=== PATIENT | female | born 1945 | race African-American/Black ===

== ENCOUNTER 2018-04-11 20:34 | Emergency (ER) | payer MEDICARE ==
[2018-04-11] MEDS ORDERED: MORPHINE IV ONE (22:03)
[2018-04-11] MEDS ORDERED: ZOFRAN IV ONE (22:03)
[2018-04-11 22:41] LABS: Bilirubin,Urine NEG (Negative); Blood,Urine LG (Negative); Color,Urine Red (Yellow); Urobilinogen,Urine < 2.0 mg/dL (<2.0)
[2018-04-11 22:44] LABS: RBC,Urine > 182.0 /HPF (0.0-6.0); WBC,Urine < 1.0 /HPF (0.0-6.0)
--- NOTE | 2018-04-11 22:54 | Emergency Department Report ---
ED Abdominal Pain HPI - General Chief Complaint: Abdominal Pain Stated Complaint: N/V/VAGINAL BLEEDING Time Seen by Provider: 04/11/18 21:04 Source: EMS Mode of arrival: Ambulatory Limitations: No Limitations - History of Present Illness Initial Comments: 72-year-old female presents to ED with lower abdominal pain and hematuria. Patient has previous history of ovarian and uterine cancer, status post hysterectomy and radiation. Patient states 2-3 months ago she began experiencing abdominal pain and hematuria. She followed up with her physicians are unable to tell her the cause of her hematuria. Patient states her lower abdominal pain became worse approximately yesterday with a larger amount of blood noticed in her urine. Patient reports generalized weakness, urinary frequency, nausea and vomiting. MD Complaint: abdominal pain -: days(s) (2) Location: suprapubic Radiation: none Migration to: no migration Severity: moderate Severity scale (0 -10): 6 Quality: aching Consistency: constant Improves With: nothing Worsens With: nothing Associated Symptoms: nausea, fever, dysuria, hematuria - Related Data Home Medications Medication Instructions Recorded Confirmed Last Taken Alendronate Sodium [Fosamax] 70 mg PO 1XW 04/11/18 04/11/18 04/07/18 Cholecalciferol (Vitamin D3) 50,000 unit PO QWEEK 04/11/18 04/11/18 04/07/18 [Vitamin D3] Diclofenac [Voltcarlos Dr] 75 mg PO BID 04/11/18 04/11/18 04/11/18 08:00 Famotidine 20 mg PO BID 04/11/18 04/11/18 04/11/18 08:00 Ferrous Sulfate [Iron] 325 mg PO DAILY 04/11/18 04/11/18 04/10/18 08:00 Losartan Potassium 25 mg PO DAILY 04/11/18 04/11/18 04/10/18 Lovastatin [Altoprev] 40 mg PO HS 04/11/18 04/11/18 04/10/18 Triamterene/Hydrochlorothiazid 37.5 mg PO DAILY 04/11/18 04/11/18 04/11/18 08:00 [Triamterene-Hctz 37.5-25 mg Cp] Previous Rx's Medication Instructions Recorded Last Taken Type Ciprofloxacin HCl [Ciprofloxacin 500 mg PO BID #20 tablet 04/12/18 Unknown Rx TAB] Phenazopyridine [Pyridium] 200 mg PO TID #6 tab 04/12/18 Unknown Rx Tramadol HCl [Ultram] 50 mg PO Q6HR PRN #7 tablet 04/12/18 Unknown Rx Allergies Allergy/AdvReac Type Severity Reaction Status Date / Time No Known Allergies Allergy Unverified 04/11/18 20:58 ED Review of Systems ROS: Stated complaint: N/V/VAGINAL BLEEDING Other details as noted in HPI Comment: All other systems reviewed and negative Constitutional: weakness. denies: chills, fever Gastrointestinal: abdominal pain, nausea, vomiting Genitourinary: dysuria, frequency, hematuria ED Past Medical Hx - Past Medical History Previous Medical History?: Yes Hx Hypertension: Yes Hx of Cancer: Yes (uterine cancer in remission since 2013) Additional medical history: High cholestrol - Surgical History Additional Surgical History: Bilateral Ovaries removed - Social History Smoking Status: Never Smoker Substance Use Type: None - Medications Home Medications: Home Medications Medication Instructions Recorded Confirmed Last Taken Type Alendronate Sodium [Fosamax] 70 mg PO 1XW 04/11/18 04/11/18 04/07/18 History Cholecalciferol (Vitamin D3) 50,000 unit PO QWEEK 04/11/18 04/11/18 04/07/18 History [Vitamin D3] Diclofenac Dr [Annika Lew] 75 mg PO BID 04/11/18 04/11/18 04/11/18 08:00 History Famotidine 20 mg PO BID 04/11/18 04/11/18 04/11/18 08:00 History Ferrous Sulfate [Iron] 325 mg PO DAILY 04/11/18 04/11/18 04/10/18 08:00 History Losartan Potassium 25 mg PO DAILY 04/11/18 04/11/18 04/10/18 History Lovastatin [Altoprev] 40 mg PO HS 04/11/18 04/11/18 04/10/18 History Triamterene/Hydrochlorothiazid 37.5 mg PO DAILY 04/11/18 04/11/18 04/11/18 08: 00 History [Triamterene-Hctz 37.5-25 mg Cp] Ciprofloxacin HCl [Ciprofloxacin 500 mg PO BID #20 tablet 04/12/18 Unknown Rx TAB] Phenazopyridine [Pyridium] 200 mg PO TID #6 tab 04/12/18 Unknown Rx Tramadol HCl [Ultram] 50 mg PO Q6HR PRN #7 tablet 04/12/18 Unknown Rx ED Physical Exam - General Limitations: No Limitations General appearance: alert, in no apparent distress - Head Head exam: Present: atraumatic, normocephalic - Eye Eye exam: Present: normal appearance - ENT ENT exam: Present: mucous membranes moist - Neck Neck exam: Present: normal inspection - Respiratory Respiratory exam: Present: normal lung sounds bilaterally. Absent: respiratory distress - Cardiovascular Cardiovascular Exam: Present: regular rate, normal rhythm - GI/Abdominal GI/Abdominal exam: Present: soft, tenderness (suprapubic tenderness present) - Extremities Exam Extremities exam: Present: normal inspection - Neurological Exam Neurological exam: Present: alert, oriented X3 - Psychiatric Psychiatric exam: Present: normal affect, normal mood - Skin Skin exam: Present: warm, dry, intact, normal color ED Course Vital Signs 04/11/18 04/11/18 20:35 22:49 Temperature 97.9 F Pulse Rate 70 66 Respiratory 16 16 Rate Blood Pressure 157/70 Blood Pressure 138/55 [Left] O2 Sat by Pulse 100 Oximetry ED Medical Decision Making - Lab Data Result diagrams: 04/11/18 22:46 04/11/18 22:46 - Medical Decision Making 72-year-old female presents with worsening hematuria and suprapubic pain over the last couple days. Patient has history of ovarian and uterine cancer status post hysterectomy. Patient reports hematuria and suprapubic pain has been ongoing times approximately 3 months. Has seen her oncologist, Dr. Carson, but states unable to find reason for hematuria. States has not followed up with a urologist. Urine shows gross hematuria. UA shows large amount of RBCs and small leukocyte esterase and no nitrates. CT shows thickened bladder wall with stranding. There is some question of whether or not patient may have a entero- vesicular fistula due to the proximity of bowel to bladder on CT. However patient denies seeing any stool in her urine. Also, a urine sample at bedside appears to just be grossly bloody. Will prescribe antibiotic in case patient has a cystitis. Patient's niece is at bedside. Advised patient and niece to follow-up with oncologist and also urologist for scoping of bladder due to concern for possible malignancy. Hemoglobin normal. Vital signs normal. Will discharge at this time - Differential Diagnosis malignancy, UTI, kidney stone Critical care attestation.: If time is entered above; I have spent that time in minutes in the direct care of this critically ill patient, excluding procedure time. ED Disposition Clinical Impression: Hematuria, Abdominal pain, suprapubic Disposition: TO HOME OR SELFCARE Is pt being admited?: No Condition: Stable Instructions: Acute Hematuria (ED), Abdominal Pain (ED) Prescriptions: Ciprofloxacin HCl [Ciprofloxacin TAB] 500 mg PO BID #20 tablet Phenazopyridine [Pyridium] 200 mg PO TID #6 tab Tramadol HCl [Ultram] 50 mg PO Q6HR PRN #7 tablet PRN Reason: pain Referrals: PRIMARY CARE, [Primary Care Provider] - 3-5 Days Time of Disposition: 02:09
[2018-04-11 23:38] LABS: Basophils % (Auto) 0.4 % (0.0-1.8); Eosinophils % (Auto) 0.4 % (0.0-4.3); Hematocrit 36.6 % (30.3-42.9); Hemoglobin 12.8 gm/dl (10.1-14.3); Lymphocytes # (Auto) 1.7 K/mm3 (1.2-5.4); Lymphocytes % (Auto) 18.5 % (13.4-35.0); Mean Corpuscular HGB Conc 35 % (30-34); Mean Corpuscular Hemoglobin 30 pg (28-32); Mean Corpuscular Volume 87 fl (79-97); Monocytes # (Auto) 0.4 K/mm3 (0.0-0.8); Monocytes % (Auto) 4.9 % (0.0-7.3); Platelet Count 228 K/mm3 (140-440); Red Blood Count 4.22 M/mm3 (3.65-5.03); Red Cell Distribution Width 13.3 % (13.2-15.2)
[2018-04-11 23:49] LABS: INR 0.96 (0.87-1.13)
[2018-04-11 23:50] LABS: Partial Thromboplastin Time 31.3 Sec. (24.2-36.6)
[2018-04-12 00:15] LABS: BUN/Creatinine Ratio 17; Blood Urea Nitrogen 15 mg/dL (7-17); Calcium 9.7 mg/dL (8.4-10.2); Hemolysis Index 7
--- NOTE | 2018-04-12 01:56 | Cat Scan Report ---
FINAL REPORT EXAM: CT ABDOMEN PELVIS W CON HISTORY: abd pain, hematuria TECHNIQUE: CT evaluation performed of the abdomen and pelvis following IV and oral contrast administration. Coronal and sagittal imaging also provided for interpretation. PRIORS: None. FINDINGS: Lower thorax: The lung bases are clear. The visualized portions of the heart demonstrates coronary atherosclerotic vascular calcifications. No significant cardiac enlargement or pericardial effusion. Liver: No focal lesions identified of the liver. No intrahepatic biliary ductal dilation. Gallbladder/ biliary system: No cholelithiasis. No extrahepatic biliary ductal dilation. Spleen: No splenic lesions are seen. Pancreas: No pancreatic lesions are seen. No pancreatic duct dilation. Kidneys: No no calculi or hydronephrosis. Within the interpolar right kidney a 1.5 cm cyst is present. Additional, sub centimeter bilateral cortical cysts are noted. Incomplete distention of the ureters on the delayed images. There is no obvious polypoid filling defect within either ureter. Adrenal glands: No adrenal masses. Vasculature: Aortoiliac atherosclerotic vascular calcifications. Lymph nodes: No enlarged lymph nodes are seen in the abdomen or pelvis. Bowel, mesentery, peritoneum: No bowel obstruction. Several mildly prominent loops of small bowel in the pelvis. Loops of ileum contact the superior margin of the irregular urinary bladder and may be tethered to the urinary bladder. Enterovesicular fistula is not excluded on the current exam. Urinary bladder: There marked, diffuse thickening of the bladder wall with mild adjacent stranding. Bones: No acute osseous abnormality. IMPRESSION: Marked diffuse thickening of the urinary bladder with adjacent fat stranding. Several loops of ileum contact the superior margin of the bladder and may be tethered to the bladder. Given the appearance, enterovesicular fistula not excluded, correlation with urinalysis recommended. Recommend urology consultation for direct visualization of the bladder. No obstructive uropathy or obvious filling defect within the proximal ureteral system. Bilateral renal cysts, no suspicious features. Atherosclerotic vascular calcifications.
[2018-04-12 02:35] VITALS: BP 122/58
== END 2018-04-12 02:35 | disposition home or self-care (01) ==
LOC: ED 20:34
DX: R31.9 Hematuria, unspecified (principal); R10.30 Lower abdominal pain, unspecified; I10 Essential (primary) hypertension; E78.00 Pure hypercholesterolemia, unspecified; Z85.42 Personal history of malignant neoplasm of other parts of uterus
CPT/HCPCS: 36415; 74177; 80048; 81001; 85025; 85610; 85730; 96374; 96375; 99284; J2270; J2405; Q9967

== ENCOUNTER 2018-07-14 07:46 | Outpatient (CLI) | payer MEDICARE | END 2018-07-14 07:47 | disposition home or self-care (01) | LOC: WOUND 07:46 | PROVIDERS: ATTEND Surgery | DX: N30.41 Irradiation cystitis with hematuria (principal); C54.8 Malignant neoplasm of overlapping sites of corpus uteri | CPT/HCPCS: 99183; G0277 ==

== ENCOUNTER 2018-07-17 07:49 | Outpatient (CLI) | payer MEDICARE | END 2018-07-17 07:50 | disposition home or self-care (01) | LOC: WOUND 07:49 | PROVIDERS: ATTEND Surgery | DX: N30.41 Irradiation cystitis with hematuria (principal); C54.8 Malignant neoplasm of overlapping sites of corpus uteri | CPT/HCPCS: 99183; G0277 ==

== ENCOUNTER 2018-07-20 07:57 | Outpatient (CLI) | payer MEDICARE | END 2018-07-20 07:58 | disposition home or self-care (01) | LOC: WOUND 07:57 | PROVIDERS: ATTEND Surgery | DX: N30.41 Irradiation cystitis with hematuria (principal); C54.8 Malignant neoplasm of overlapping sites of corpus uteri | CPT/HCPCS: 99183; G0277 ==

== ENCOUNTER 2018-07-21 07:59 | Outpatient (CLI) | payer MEDICARE | END 2018-07-21 08:00 | disposition home or self-care (01) | LOC: WOUND 07:59 | CPT/HCPCS: 99183; G0277 ==

== ENCOUNTER 2018-07-25 07:53 | Outpatient (CLI) | payer MEDICARE | END 2018-07-25 07:54 | disposition home or self-care (01) | LOC: WOUND 07:53 | PROVIDERS: ATTEND Surgery | DX: N30.41 Irradiation cystitis with hematuria (principal); C54.8 Malignant neoplasm of overlapping sites of corpus uteri | CPT/HCPCS: 99183; G0277 ==

== ENCOUNTER 2018-07-26 08:11 | Outpatient (CLI) | payer MEDICARE | END 2018-07-26 08:12 | disposition home or self-care (01) | LOC: WOUND 08:11 | CPT/HCPCS: 99183; G0277 ==

== ENCOUNTER 2018-07-27 07:55 | Outpatient (CLI) | payer MEDICARE | END 2018-07-27 07:56 | disposition home or self-care (01) | LOC: WOUND 07:55 | CPT/HCPCS: 99183; G0277 ==

== ENCOUNTER 2018-07-28 07:52 | Outpatient (CLI) | payer MEDICARE | END 2018-07-28 07:53 | disposition home or self-care (01) | LOC: WOUND 07:52 | CPT/HCPCS: 99183; G0277 ==

== ENCOUNTER 2018-07-31 07:58 | Outpatient (CLI) | payer MEDICARE | END 2018-07-31 07:59 | disposition home or self-care (01) | LOC: WOUND 07:58 | CPT/HCPCS: 99183; G0277 ==

== ENCOUNTER 2018-08-01 08:01 | Outpatient (CLI) | payer MEDICARE | END 2018-08-01 08:02 | disposition home or self-care (01) | LOC: WOUND 08:01 | CPT/HCPCS: 99183; G0277 ==

== ENCOUNTER 2018-08-02 07:56 | Outpatient (CLI) | payer MEDICARE | END 2018-08-02 07:57 | disposition home or self-care (01) | LOC: WOUND 07:56 | CPT/HCPCS: 99183; G0277 ==

== ENCOUNTER 2018-08-03 07:53 | Outpatient (CLI) | payer MEDICARE | END 2018-08-03 07:54 | disposition home or self-care (01) | LOC: WOUND 07:53 | CPT/HCPCS: 99183; G0277 ==

== ENCOUNTER 2018-08-04 07:55 | Outpatient (CLI) | payer MEDICARE | END 2018-08-04 07:56 | disposition home or self-care (01) | LOC: WOUND 07:55 | PROVIDERS: ATTEND Surgery | DX: N30.41 Irradiation cystitis with hematuria (principal); C54.8 Malignant neoplasm of overlapping sites of corpus uteri; M87.9 Osteonecrosis, unspecified | CPT/HCPCS: 99183; G0277 ==

== ENCOUNTER 2018-08-07 07:55 | Outpatient (CLI) | payer MEDICARE | END 2018-08-07 07:56 | disposition home or self-care (01) | LOC: WOUND 07:55 | CPT/HCPCS: 99183; G0277 ==

== ENCOUNTER 2018-08-08 07:59 | Outpatient (CLI) | payer MEDICARE | END 2018-08-08 08:00 | disposition home or self-care (01) | LOC: WOUND 07:59 | PROVIDERS: ATTEND Surgery | DX: N30.41 Irradiation cystitis with hematuria (principal); C54.8 Malignant neoplasm of overlapping sites of corpus uteri; L59.8 Other specified disorders of the skin and subcutaneous tissue related to radiation; Y84.2 Radiological procedure and radiotherapy as the cause of abnormal reaction of the patient, or of later complication, without mention of misadventure at the time of the procedure | CPT/HCPCS: 99183; G0277 ==

== ENCOUNTER 2018-08-09 07:57 | Outpatient (CLI) | payer MEDICARE | END 2018-08-09 07:58 | disposition home or self-care (01) | LOC: WOUND 07:57 | PROVIDERS: ATTEND Surgery | DX: N30.41 Irradiation cystitis with hematuria (principal); C54.8 Malignant neoplasm of overlapping sites of corpus uteri; L59.8 Other specified disorders of the skin and subcutaneous tissue related to radiation; Y84.2 Radiological procedure and radiotherapy as the cause of abnormal reaction of the patient, or of later complication, without mention of misadventure at the time of the procedure | CPT/HCPCS: 99183; G0277 ==

== ENCOUNTER 2018-08-10 07:58 | Outpatient (CLI) | payer MEDICARE | END 2018-08-10 07:59 | disposition home or self-care (01) | LOC: WOUND 07:58 | PROVIDERS: ATTEND Surgery | DX: N30.41 Irradiation cystitis with hematuria (principal); C54.8 Malignant neoplasm of overlapping sites of corpus uteri; L59.8 Other specified disorders of the skin and subcutaneous tissue related to radiation; Y84.2 Radiological procedure and radiotherapy as the cause of abnormal reaction of the patient, or of later complication, without mention of misadventure at the time of the procedure | CPT/HCPCS: 99183; G0277 ==

== ENCOUNTER 2018-08-11 08:25 | Inpatient (IN) | payer MEDICARE ==
[2018-08-11 09:44] LABS: Basophils % (Auto) 0.5 % (0.0-1.8); Eosinophils % (Auto) 0.4 % (0.0-4.3); Hematocrit 28.9 % (30.3-42.9); Hemoglobin 9.5 gm/dl (10.1-14.3); Lymphocytes # (Auto) 1.4 K/mm3 (1.2-5.4); Lymphocytes % (Auto) 22.7 % (13.4-35.0); Mean Corpuscular HGB Conc 33 % (30-34); Mean Corpuscular Volume 90 fl (79-97); Monocytes # (Auto) 0.3 K/mm3 (0.0-0.8); Monocytes % (Auto) 5.4 % (0.0-7.3); Platelet Count 215 K/mm3 (140-440); Red Blood Count 3.22 M/mm3 (3.65-5.03); Red Cell Distribution Width 14.6 % (13.2-15.2)
--- NOTE | 2018-08-11 09:55 | Cat Scan Report ---
CT HEAD WITHOUT CONTRAST: HISTORY: Altered mental status. TECHNIQUE: Sequential 2.5mm CT images. COMPARISON: none. FINDINGS: Cerebral Parenchyma: Within normal limits. Cerebellum: Within normal limits. Brainstem: Within normal limits. Ventricles: Normal. Sella: Normal. Extra-axial spaces: Normal. Basal Cisterns: Normal. Intracranial Hemorrhage: None. Midline Shift: None. Calvarium: Normal. Sinuses: Normal. Mastoid Air Cells: There is partial opacification of the mastoid air cells bilaterally. Visualized Orbits: Normal. IMPRESSION: Cranial CT scan within normal limits.
[2018-08-11 10:06] LABS: Alanine Aminotransferase 6 units/L (7-56); Albumin 3.8 g/dL (3.9-5); BUN/Creatinine Ratio 8; Blood Urea Nitrogen 76 mg/dL (7-17); Calcium 8.9 mg/dL (8.4-10.2); Hemolysis Index 4
[2018-08-11 10:32] LABS: INR 1.26 (0.87-1.13); Partial Thromboplastin Time 34.9 Sec. (24.2-36.6)
--- NOTE | 2018-08-11 11:04 | Emergency Department Report ---
HPI - General Chief Complaint: Weakness Time Seen by Provider: 08/11/18 09:09 - HPI HPI: 73-year-old [place] female presents to the emergency department from the [facility] where she gets hyperbaric treatment with the complaint of some weakness, dizziness and feeling off balance. The patient has a previous history of uterine cancer for which she had received radiation treatment. This apparently caused some type of wound to the bladder that has been causing her to have significant hematuria. The patient goes to get the hyperbaric treatment 5 times per week. Apparently the patient says that she was feeling dizzy and off- balance since last night. The patient does not speak Russian and her brother is at bedside doing translation. Her urologist is Dr. Aguilera and her oncologist is Dr. Soto. ED Past Medical Hx - Past Medical History Previous Medical History?: Yes Hx Hypertension: Yes (X 3 YRS, patient states did not take any medications, today) Hx GERD: Yes Hx of Cancer: Yes Hx Asthma: No Hx COPD: No Hx HIV: No Additional medical history: High cholestrol - Surgical History Past Surgical History?: Yes Additional Surgical History: Bilateral Ovaries removed - Social History Smoking Status: Never Smoker Substance Use Type: None - Medications Home Medications: Home Medications Medication Instructions Recorded Confirmed Last Taken Type Alendronate Sodium [Fosamax] 70 mg PO 1XW 04/11/18 08/11/18 05/14/18 History Cholecalciferol (Vitamin D3) 50,000 unit PO QWEEK 04/11/18 08/11/18 05/14/18 History [Vitamin D3] Ferrous Sulfate [Iron] 325 mg PO DAILY 04/11/18 08/11/18 05/14/18 History Losartan Potassium 25 mg PO DAILY 04/11/18 08/11/18 05/14/18 History Lovastatin [Altoprev] 40 mg PO HS 04/11/18 08/11/18 05/14/18 History Triamterene/Hydrochlorothiazid 37.5 mg PO DAILY 04/11/18 08/11/18 05/14/18 History [Triamterene-Hctz 37.5-25 mg Cp] Multivit-Min/FA/Lycopen/Lutein 1 each PO DAILY 05/04/18 08/11/18 05/14/18 History [Centrum Silver Tablet] ED Review of Systems ROS: Stated complaint: ABNORMAL LABS Other details as noted in HPI Comment: All other systems reviewed and negative Constitutional: weakness. denies: chills, fever Eyes: denies: eye pain, vision change ENT: denies: ear pain, throat pain Respiratory: denies: cough, SOB with exertion Cardiovascular: denies: chest pain, palpitations Gastrointestinal: denies: abdominal pain, vomiting Genitourinary: hematuria. denies: discharge Musculoskeletal: denies: back pain, arthralgia Skin: denies: rash, lesions Neurological: other (dizziness, off balanced) Physical Exam - Physical Exam Vital Signs: Vital Signs 08/11/18 08:40 Temperature 97.9 F Pulse Rate 80 Respiratory 24 Rate Blood Pressure 113/58 O2 Sat by Pulse 100 Oximetry Physical Exam: GENERAL: The patient is well-developed well-nourished. HEENT: Normocephalic. Atraumatic. Patient has moist mucous membranes. EYES: Extraocular motions are intact. Pupils are equal and reactive to light bilaterally. NECK: Supple. Trachea is midline. CHEST/LUNGS: Clear to auscultation. There is no respiratory distress noted. HEART/CARDIOVASCULAR: Regular. There is no tachycardia. There is no obvious murmur. ABDOMEN: Abdomen is soft, nontender. Patient has normal bowel sounds. There is no abdominal distention. SKIN: Skin is warm and dry. NEURO: The patient is awake, alert, and oriented. The patient is cooperative. No sensory deficits. The patient has normal speech. There is a mild left lower extremity drift. MUSCULOSKELETAL: There is no tenderness or deformity. There is no limitation range of motion. There is no evidence of acute injury. ED Course Vital Signs 08/11/18 08:40 Temperature 97.9 F Pulse Rate 80 Respiratory 24 Rate Blood Pressure 113/58 O2 Sat by Pulse 100 Oximetry - Consultations Consultation #1: I spoke with the inspector balance bridge on-call, Dr. Pierre, regarding the patient's acute renal failure and Dr. Pierre says he is happy to consult. 08/11/18 15:57 ED Medical Decision Making - Lab Data Result diagrams: 08/11/18 09:27 08/11/18 09:27 - EKG Data -: EKG Interpreted by Me EKG shows normal: sinus rhythm, axis, intervals, QRS complexes, ST-T waves Rate: normal - EKG Data When compared to previous EKG there are: previous EKG unavailable Interpretation: normal EKG - Radiology Data Radiology results: report reviewed CT HEAD WITHOUT CONTRAST: HISTORY: Altered mental status. TECHNIQUE: Sequential 2.5mm CT images. COMPARISON: none. FINDINGS: Cerebral Parenchyma: Within normal limits. Cerebellum: Within normal limits. Brainstem: Within normal limits. Ventricles: Normal. Sella: Normal. Extra-axial spaces: Normal. Basal Cisterns: Normal. Intracranial Hemorrhage: None. Midline Shift: None. Calvarium: Normal. Sinuses: Normal. Mastoid Air Cells: There is partial opacification of the mastoid air cells bilaterally. Visualized Orbits: Normal. IMPRESSION: Cranial CT scan within normal limits. CT ABDOMEN PELVIS WITHOUT CONTRAST: HISTORY: Uterine cancer, bladder wound, acute kidney insufficiency. COMPARISON: 04/12/18. TECHNIQUE: Helical CT in 1.25mm intervals without IV contrast. Sagittal and coronal reconstructions. FINDINGS: Lung bases: Normal. Liver: Normal. Biliary system: Normal. Pancreas: Normal. Spleen: Normal. Kidneys/ureters/bladder: Normal. The previously described bladder abnormality is no longer appreciated although no IV or oral contrast was administered. Adrenal glands: Normal. Aorta: Normal. Intestines: Normal. Appendix: Not confidently identified. Pelvic viscera: Hysterectomy changes are suspected. Ascites: None. Adenopathy: None. Musculoskeletal: Mild osteopenia and degenerative changes in the spine are noted. IMPRESSION: No acute inflammatory process is identified. Transcribed By: TTR Dictated By: ETHAN SOSA JR, MD Electronically Authenticated By: ETHAN SOSA JR, MD Signed Date/Time: 08/11/18 1200 - Medical Decision Making The patient came over for evaluation from the hyperbaric wound care clinic for evaluation of some dizziness and generalized weakness that has been going on since last night. On examination the patient has a mild left lower extremity drift. This will give her an NIH stroke scale of 1 but the patient is not a TPA candidate as the last known well time was sometime last night and the patient is known for gross hematuria. As part of the patient's evaluation, her metabolic panel came back showing a creatinine of greater than 9 and a GFR of about 8. The last lab values I have from her off of March 2018 at her kidney function was normal at that time. CT scan of the head did not show any acute bleed, shift, mass, ischemia or any other acute process. This seemed to be said of the CT of the abdomen and pelvis which did not show any intra-abdominal or pelvic pathology. Patient will be admitted to the hospital for further evaluation and treatment and has been accepted for admission by the hospitalist service. - Differential Diagnosis CVA, TIA, malignancy, obstructive uropathy, UTI Critical Care Time: No Critical care attestation.: If time is entered above; I have spent that time in minutes in the direct care of this critically ill patient, excluding procedure time. ED Disposition Clinical Impression: ARF (acute renal failure) with tubular necrosis, Dizziness, Left leg weakness, History of uterine cancer, Lactic acidosis Disposition: OP ADMIT IP TO THIS HOSP Is pt being admited?: Yes Condition: Serious Time of Disposition: 15:59 - Assessment Assessment Interval: Baseline - Level of Consciousness 1a. Level of Consciousness: alert/keenly responsive - LOC Questions 1b. LOC Questions: answers both correctly - LOC Command 1c. LOC Commands: performs tasks correctly - Best Gaze 2. Best Gaze: normal - Visual 3. Visual: no visual loss - Facial Palsy 4. Facial Palsy: normal symmetrical movement - Motor Arm 5b. Motor Arm Right: no drift 5a. Motor Arm Left: no drift - Motor Leg 6b. Motor Leg Right: no drift 6a. Motor Leg Left: drift - Limb Ataxia 7. Limb Ataxia: absent - Sensory 8. Sensory: normal - Best Language 9. Best Language: no aphasia - Dysarthria 10. Dysarthria: normal - Extinction and Inattention 11. Extinction/Inattention: no abnormality - Scoring Total Score: 1 Stroke Severity: Minor Stroke
[2018-08-11] MEDS ORDERED: NACL 0.9% 1000 ML 1,000 ML IV ONE (11:30)
[2018-08-11] MEDS ORDERED: ROCEPHIN/NS 1 GM/50 ML 1 GM/50 ML BAG IV ONE (11:31)
--- NOTE | 2018-08-11 12:04 | Cat Scan Report ---
CT ABDOMEN PELVIS WITHOUT CONTRAST: HISTORY: Uterine cancer, bladder wound, acute kidney insufficiency. COMPARISON: 04/12/18. TECHNIQUE: Helical CT in 1.25mm intervals without IV contrast. Sagittal and coronal reconstructions. FINDINGS: Lung bases: Normal. Liver: Normal. Biliary system: Normal. Pancreas: Normal. Spleen: Normal. Kidneys/ureters/bladder: Normal. The previously described bladder abnormality is no longer appreciated although no IV or oral contrast was administered. Adrenal glands: Normal. Aorta: Normal. Intestines: Normal. Appendix: Not confidently identified. Pelvic viscera: Hysterectomy changes are suspected. Ascites: None. Adenopathy: None. Musculoskeletal: Mild osteopenia and degenerative changes in the spine are noted. IMPRESSION: No acute inflammatory process is identified.
--- NOTE | 2018-08-11 12:24 | History and Physical Report ---
History of Present Illness Chief complaint: she feels weak History of present illness: 73 YO Female with Uterine Cancer S/P Radiation Therapy, HTN, HLD presents to ED for evaluation. Pt is nonverbal and does not speak Georgian. Pt brother is at bedside and serves as ortho tech. Pt seen and evaluated at wound center today and was found to have dizziness, weakness. Pt was transported to [facility] for further care and evaluation. Pt seen and evaluated in ED and found to hate ARF and acidosis. Nephrology consulted in ED. Pt admitted to Medical Floor. No reports of fever, chills, CP, Palpitations, NVD, Trauma, Skin Rash, BRBPR, productive cough, or recent ill contacts. Past History Past Medical History: cancer, hypertension, hyperlipidemia Past Surgical History: Other (Bilateral ovary removal) Social history: single. denies: smoking, alcohol abuse, prescription drug abuse Family history: hypertension Medications and Allergies Allergies Allergy/AdvReac Type Severity Reaction Status Date / Time No Known Allergies Allergy Verified 05/04/18 15:11 Home Medications Medication Instructions Recorded Confirmed Last Taken Type Alendronate Sodium [Fosamax] 70 mg PO 1XW 04/11/18 08/11/18 05/14/18 History Cholecalciferol (Vitamin D3) 50,000 unit PO QWEEK 04/11/18 08/11/18 05/14/18 History [Vitamin D3] Ferrous Sulfate [Iron] 325 mg PO DAILY 04/11/18 08/11/18 05/14/18 History Losartan Potassium 25 mg PO DAILY 04/11/18 08/11/18 05/14/18 History Lovastatin [Altoprev] 40 mg PO HS 04/11/18 08/11/18 05/14/18 History Triamterene/Hydrochlorothiazid 37.5 mg PO DAILY 04/11/18 08/11/18 05/14/18 History [Triamterene-Hctz 37.5-25 mg Cp] Multivit-Min/FA/Lycopen/Lutein 1 each PO DAILY 05/04/18 08/11/18 05/14/18 History [Centrum Silver Tablet] Active Meds: Active Medications Sodium Chloride (Nacl 0.9% 1000 Ml) 1,000 mls @ 999 mls/hr IV BOLUS ONE Stop: 08/11/18 12:30 Review of Systems Constitutional: weakness, no weight loss, no weight gain, no fever, no chills Ears, nose, mouth and throat: no ear pain, no ear discharge, no tinnitis, no decreased hearing, no nose pain Breasts: no change in shape, no swelling, no mass Cardiovascular: no chest pain, no orthopnea, no palpitations, no rapid/irregular heart beat Respiratory: no cough, no cough with sputum, no excessive sputum, no hemoptysis, no shortness of breath Gastrointestinal: no nausea, no vomiting, no diarrhea, no constipation, no c hange in bowel habits Genitourinary Female: no flank pain, no menorrhagia, no dysuria, no urinary frequency, no urgency Rectal: no pain, no incontinence, no bleeding Integumentary: no rash, no pruritis, no redness, no sores, no wounds Neurological: no transient paralysis, no paralysis, no weakness, no parathesias, no numbness Psychiatric: no anxiety, no memory loss, no change in sleep habits, no sleep disturbances, no insomnia, no hypersomnia, no change in appetite Endocrine: no cold intolerance, no heat intolerance, no polyphagia, no excessive thirst, no polyuria Hematologic/Lymphatic: no easy bruising, no easy bleeding, no lymphadenopathy Allergic/Immunologic: no urticaria, no allergic rhinitis, no wheezing, no angioedema Exam - Constitutional Vitals: Temp Pulse Resp BP Pulse Ox 97.9 F 67 19 123/61 100 08/11/18 08:40 08/11/18 12:00 08/11/18 12:00 08/11/18 12:00 08/11/18 12:00 General appearance: Present: mild distress - EENT Eyes: Present: PERRL ENT: hearing intact, clear oral mucosa - Neck Neck: Present: supple, normal ROM - Respiratory Respiratory effort: normal Respiratory: bilateral: CTA - Cardiovascular Heart Sounds: Present: S1 & S2. Absent: rub, click - Extremities Extremities: pulses symmetrical, No edema Peripheral Pulses: within normal limits - Abdominal General gastrointestinal: Present: soft, non-tender, non-distended, normal bowel sounds Female genitourinary: Present: normal - Integumentary Integumentary: Present: clear, warm, dry - Musculoskeletal Musculoskeletal: gait normal, strength equal bilaterally - Psychiatric Psychiatric: appropriate mood/affect, intact judgment & insight - Neurologic Neurologic: CNII-XII intact, moves all extremities Results - Labs CBC & Chem 7: 08/11/18 09:27 08/11/18 09:27 Labs: Abnormal lab results 08/11/18 08/11/18 08/11/18 Range/Units 09:27 09:27 09:27 RBC 3.22 L (3.65-5.03) M/mm3 Hgb 9.5 L (10.1-14.3) gm/dl Hct 28.9 L (30.3-42.9) % Seg Neutrophils % 71.0 H (40.0-70.0) % PT 16.2 H (12.2-14.9) Sec. INR 1.26 H (0.87-1.13) Carbon Dioxide 16 L (22-30) mmol/L BUN 76 H (7-17) mg/dL Creatinine 9.4 H (0.7-1.2) mg/dL Glucose 147 H (65-100) mg/dL Lactic Acid (0.7-2.0) mmol/L ALT 6 L (7-56) units/L Albumin 3.8 L (3.9-5) g/dL 08/11/18 Range/Units 09:27 RBC (3.65-5.03) M/mm3 Hgb (10.1-14.3) gm/dl Hct (30.3-42.9) % Seg Neutrophils % (40.0-70.0) % PT (12.2-14.9) Sec. INR (0.87-1.13) Carbon Dioxide (22-30) mmol/L BUN (7-17) mg/dL Creatinine (0.7-1.2) mg/dL Glucose (65-100) mg/dL Lactic Acid 2.90 H* (0.7-2.0) mmol/L ALT (7-56) units/L Albumin (3.9-5) g/dL Assessment and Plan - Patient Problems (1) ARF (acute renal failure) with tubular necrosis Current Visit: Yes Status: Acute Plan to address problem: IVF resuscitation therapy, monitor uop q shift, nephrology consulted, urine electrolytes, renal ultrasound, CT abdomen/Pelvis (2) Acidosis Current Visit: Yes Status: Acute Plan to address problem: IVF resuscitation therapy, repeat bmp (3) HTN (hypertension) Current Visit: Yes Status: Acute Qualifiers: Hypertension type: essential hypertension Qualified Code(s): I10 - Essenti al (primary) hypertension Plan to address problem: monitor bp q shift, (4) Uterine cancer Current Visit: Yes Status: Acute Qualifiers: Malignant neoplasm of body of uterus location: unspecified location Plan to address problem: Outpatient oncology F/U. (5) DVT prophylaxis Current Visit: Yes Status: Acute Plan to address problem: SCD to BLE while in bed.
[2018-08-11] MEDS ORDERED: PROVENTIL IH PRN (12:46)
[2018-08-11] MEDS ORDERED: TYLENOL PO PRN (12:46)
[2018-08-11 13:13] LABS: Creatinine,Urine 61.9 mg/dL (0.1-20.0)
--- NOTE | 2018-08-11 16:14 | Consultation ---
History of Present Illness - Reason for Consult Consult date: 08/11/18 acute renal failure - History of Present Illness This is a 73 year old Sudanese female with a past medical history of Hyp ertension, uterine cancer that has underwent radiation and chemotherapy therapy and also has hematuria secondary to bladder injury from chemotherapy and radiation which was being followed by Urologist Dr. Patrick who presents to this E.R today with a chief complaint of feeling weak and dizzy since yesterday and some nausea. On evaluation patient was found to be in severe renal failure with serum creatinine of 9.4 and BUN level of 76. Review of prior labs from 04/11/18 showed serum creatinine 0.9 at that time. We are being consulted for management of this patient's Acute Renal Failure. Past History Past Medical History: cancer, hypertension, hyperlipidemia, other (uterine cancer) Past Surgical History: Other (Bilateral ovary removal) Social history: single. denies: smoking, alcohol abuse, prescription drug abuse Family history: hypertension Medications and Allergies Allergies Allergy/AdvReac Type Severity Reaction Status Date / Time No Known Allergies Allergy Verified 05/04/18 15:11 Home Medications Medication Instructions Recorded Confirmed Last Taken Type Alendronate Sodium [Fosamax] 70 mg PO 1XW 04/11/18 08/11/18 05/14/18 History Cholecalciferol (Vitamin D3) 50,000 unit PO QWEEK 04/11/18 08/11/18 05/14/18 History [Vitamin D3] Ferrous Sulfate [Iron] 325 mg PO DAILY 04/11/18 08/11/18 05/14/18 History Losartan Potassium 25 mg PO DAILY 04/11/18 08/11/18 05/14/18 History Lovastatin [Altoprev] 40 mg PO HS 04/11/18 08/11/18 05/14/18 History Triamterene/Hydrochlorothiazid 37.5 mg PO DAILY 04/11/18 08/11/18 05/14/18 History [Triamterene-Hctz 37.5-25 mg Cp] Multivit-Min/FA/Lycopen/Lutein 1 each PO DAILY 05/04/18 08/11/18 05/14/18 History [Centrum Silver Tablet] Active Meds: Active Medications Acetaminophen (Tylenol) 650 mg PO Q4H PRN PRN Reason: Pain MILD(1-3)/Fever >100.5/NOE Albuterol (Proventil) 2.5 mg IH Q4HRT PRN PRN Reason: Shortness Of Breath Morphine Sulfate (Morphine) 2 mg IV Q4H PRN PRN Reason: Pain, Moderate (4-6) Ondansetron HCl (Zofran) 4 mg IV Q8H PRN PRN Reason: Nausea And Vomiting Sodium Chloride (Sodium Chloride Flush Syringe 10 Ml) 10 ml IV BID CHRISTINE Sodium Chloride (Sodium Chloride Flush Syringe 10 Ml) 10 ml IV PRN PRN PRN Reason: LINE FLUSH Review of Systems Constitutional: fatigue, weakness, no weight loss, no weight gain, no fever, no chills Ears, nose, mouth and throat: no ear pain, no ear discharge, no tinnitis, no decreased hearing, no nose pain, no nasal congestion, no nasal discharge Breasts: deferred Cardiovascular: no chest pain, no orthopnea, no palpitations, no rapid/irregular heart beat, no edema, no syncope, no lightheadedness, no shortness of breath Respiratory: no cough with sputum, no excessive sputum, no hemoptysis, no shortness of breath, no dyspnea on exertion Gastrointestinal: nausea, no abdominal pain, no vomiting, no diarrhea, no constipation, no change in bowel habits, no hematemesis Genitourinary Female: dysuria, no pelvic pain, no flank pain, no menorrhagia, no urinary frequency, no urgency Rectal: no incontinence, no bleeding, no itching Musculoskeletal: muscle weakness, no neck stiffness, no neck pain, no shooting arm pain, no arm numbness/tingling, no low back pain Integumentary: no redness, no sores, no wounds Neurological: weakness, no paralysis, no parathesias, no numbness, no tingling, no seizures Psychiatric: no anxiety, no memory loss, no change in sleep habits, no sleep disturbances, no insomnia, no hypersomnia Endocrine: no cold intolerance, no heat intolerance, no polyphagia, no excessive thirst, no polydipsia Hematologic/Lymphatic: no easy bruising, no easy bleeding, no lymphadenopathy, no lymphedema Exam - Vital Signs Vital signs: Vital Signs Temp Pulse Resp BP Pulse Ox 97.9 F 80 24 113/58 100 08/11/18 08:40 08/11/18 08:40 08/11/18 08:40 08/11/18 08:40 08/11/18 08:40 - General Appearance General appearance: well-developed, appears stated age, fatigue, other (Speaks Sudanese. Tailer Off named Lauren was used.) EENT: ATNC, PERRL, hearing intact, vision intact Results - Lab Results 08/11/18 09:27 08/11/18 09:27 Most recent lab results Calcium 8.9 mg/dL (8.4-10.2) 08/11/18 09:27 Urine Creatinine 61.9 mg/dL (0.1-20.0) H 08/11/18 12:56 Urine Sodium 73 mmol/L 08/11/18 12:56 Assessment and Plan Acute Renal Failure secondary to Prerenal etiology vs ATN: Metabolic Acidosis: -Obtain renal ultrasound -Obtain urine lytes -Start 1/2NS with 75 meq of Sodium Bicarbonate@75 ml/hr -Monitor I/O's -Obtain daily weights -Place logan catheter -Monitor renal function closely Hypertension: -Blood pressures are stable -Monitor Hematuria: -Logan ordered -Follows with Dr. Mccauley in the past -May Urology consult if hematuria still present Uterine cancer: -S/P Hysterectomy and Chemo/radiation -Follows oncologist outpatiently -As per primary team
--- NOTE | 2018-08-11 17:09 | Consultation ---
History of Present Illness - Reason for Consult Consult date: 08/11/18 - History of Present Illness 73 YO Female with Uterine Cancer S/P Radiation Therapy, HTN, HLD presents to ED for evaluation. Pt is nonverbal and does not speak Macedonian. Pt brother is at bedside and serves as spanish translator. Pt seen and evaluated at wound center today and was found to have dizziness, weakness. Pt was transported to [facility] for further care and evaluation. Pt seen and evaluated in ED and found to hate ARF and aci dosis. Nephrology consulted in ED. Pt admitted to Medical Floor. Pt seen by Dr. Sandoval in our group for gross hematuria. cysto, bladder bx - no acute finding. pt had previous pelvic radiation. Suggest radiation cystitis - recommend HBOT I spoke with Dr. Atkinson in ER. I states re eval is needed. CTAP (08-11-18) NO ACUTE FINDINGS abd soft, healed surgical scar A/P ADMITTED FOR WEAKNESS RADIATION CYSTITIS (NO ACUTE ISSUE) Past History Past Medical History: cancer, hypertension, hyperlipidemia, other (uterine cancer) Past Surgical History: Other (Bilateral ovary removal) Social history: single. denies: smoking, alcohol abuse, prescription drug abuse Family history: hypertension Medications and Allergies Allergies Allergy/AdvReac Type Severity Reaction Status Date / Time No Known Allergies Allergy Verified 05/04/18 15:11 Home Medications Medication Instructions Recorded Confirmed Last Taken Type Alendronate Sodium [Fosamax] 70 mg PO 1XW 04/11/18 08/11/18 05/14/18 History Cholecalciferol (Vitamin D3) 50,000 unit PO QWEEK 04/11/18 08/11/18 05/14/18 History [Vitamin D3] Ferrous Sulfate [Iron] 325 mg PO DAILY 04/11/18 08/11/18 05/14/18 History Losartan Potassium 25 mg PO DAILY 04/11/18 08/11/18 05/14/18 History Lovastatin [Altoprev] 40 mg PO HS 04/11/18 08/11/18 05/14/18 History Triamterene/Hydrochlorothiazid 37.5 mg PO DAILY 04/11/18 08/11/18 05/14/18 History [Triamterene-Hctz 37.5-25 mg Cp] Multivit-Min/FA/Lycopen/Lutein 1 each PO DAILY 05/04/18 08/11/1818 History [Centrum Silver Tablet] Active Meds: Active Medications Acetaminophen (Tylenol) 650 mg PO Q4H PRN PRN Reason: Pain MILD(1-3)/Fever >100.5/NOE Albuterol (Proventil) 2.5 mg IH Q4HRT PRN PRN Reason: Shortness Of Breath Sodium Bicarbonate 75 meq/ (Sodium Chloride) 1,075 mls @ 75 mls/hr IV DIRECT CHRISTINE Morphine Sulfate (Morphine) 2 mg IV Q4H PRN PRN Reason: Pain, Moderate (4-6) Ondansetron HCl (Zofran) 4 mg IV Q8H PRN PRN Reason: Nausea And Vomiting Sodium Chloride (Sodium Chloride Flush Syringe 10 Ml) 10 ml IV BID CHRISTINE Sodium Chloride (Sodium Chloride Flush Syringe 10 Ml) 10 ml IV PRN PRN PRN Reason: LINE FLUSH Exam - Constitutional Vitals: Temp Pulse Resp BP Pulse Ox 97.9 F 66 18 123/60 99 08/11/18 08:40 08/11/18 13:30 08/11/18 14:27 08/11/18 13:30 08/11/18 14:27 Results - Labs CBC & Chem 7: 08/12/18 17:26 08/12/18 04:39 Labs: Abnormal lab results 08/11/18 08/11/18 08/11/18 Range/Units 09:27 09:27 09:27 RBC 3.22 L (3.65-5.03) M/mm3 Hgb 9.5 L (10.1-14.3) gm/dl Hct 28.9 L (30.3-42.9) % Seg Neutrophils % 71.0 H (40.0-70.0) % PT 16.2 H (12.2-14.9) Sec. INR 1.26 H (0.87-1.13) Carbon Dioxide 16 L (22-30) mmol/L BUN 76 H (7-17) mg/dL Creatinine 9.4 H (0.7-1.2) mg/dL Glucose 147 H (65-100) mg/dL Lactic Acid (0.7-2.0) mmol/L ALT 6 L (7-56) units/L Albumin 3.8 L (3.9-5) g/dL Urine Creatinine (0.1-20.0) mg/dL 08/11/18 08/11/18 Range/Units 09:27 12:56 RBC (3.65-5.03) M/mm3 Hgb (10.1-14.3) gm/dl Hct (30.3-42.9) % Seg Neutrophils % (40.0-70.0) % PT (12.2-14.9) Sec. INR (0.87-1.13) Carbon Dioxide (22-30) mmol/L BUN (7-17) mg/dL Creatinine (0.7-1.2) mg/dL Glucose (65-100) mg/dL Lactic Acid 2.90 H* (0.7-2.0) mmol/L ALT (7-56) units/L Albumin (3.9-5) g/dL Urine Creatinine 61.9 H (0.1-20.0) mg/dL
--- NOTE | 2018-08-11 17:32 | Ultrasound Report ---
FINAL REPORT EXAM: US RENAL BILAT HISTORY: renal failure TECHNIQUE: Retroperitoneal ultrasound PRIORS: None. FINDINGS: The right kidney measures 9.4 x 4.4 x 4.8 centimeters. Cortical thickness 1.2 centimeters. The left kidney measures 9.0 x 5.8 x 5.0 centimeters. Cortical thickness 1.3 centimeters There is no evidence of hydronephrosis or nephrolithiasis. There is increased renal echogenicity bila terally. Images of the urinary bladder demonstrate no focal abnormality. IMPRESSION: Increased renal echogenicity most consistent with underlying medical renal disease
[2018-08-11] MEDS: NACL 0.45% 1000 ML 1,000 ML with SODIUM BICARBONATE 75 MEQ IV SCH (20:52)
[2018-08-11] MEDS: SODIUM CHLORIDE FLUSH SYRINGE 10 ML IV SCH ×2 (20:53→21:30)
[2018-08-12 04:35] LABS: Creatinine,Urine 34.2 mg/dL (0.1-20.0); Protein/Creatinine Ratio,Urine 0.67
[2018-08-12 04:55] LABS: Basophils % (Auto) 0.7 % (0.0-1.8); Eosinophils # (Auto) 0.2 K/mm3 (0.0-0.4); Eosinophils % (Auto) 3.6 % (0.0-4.3); Hemoglobin 8.4 gm/dl (10.1-14.3); Lymphocytes # (Auto) 1.8 K/mm3 (1.2-5.4); Lymphocytes % (Auto) 34.8 % (13.4-35.0); Mean Corpuscular HGB Conc 34 % (30-34); Mean Corpuscular Volume 89 fl (79-97); Monocytes # (Auto) 0.4 K/mm3 (0.0-0.8); Monocytes % (Auto) 8.3 % (0.0-7.3); Platelet Count 191 K/mm3 (140-440); Red Blood Count 2.82 M/mm3 (3.65-5.03); Red Cell Distribution Width 14.3 % (13.2-15.2)
[2018-08-12 05:19] LABS: Albumin 3.6 g/dL (3.9-5); Calcium 8.3 mg/dL (8.4-10.2)
[2018-08-12] MEDS: SODIUM CHLORIDE FLUSH SYRINGE 10 ML IV SCH ×2 (09:39→21:43)
--- NOTE | 2018-08-12 10:28 | Progress Note ---
Assessment and Plan Acute Renal Failure secondary to Prerenal etiology vs ATN: Non-Anion Gap Metabolic Acidosis: -Renal function reviewed, SCr level decreased to 7.7 today, yesterday's SCr level was 9.4 -Renal US showed no hydronephrosis or nephrolithiasis, but did show increased renal echogenicity most consistent with underlying renal disease -On 0.45% NS with 75 mEq of Sodium Bicarbonate infusion at 75 ml/hr -Obtain daily weights -Monitor renal function closely -Meza Catheter: Yes -Renal plan d/w Dr Pierre Essential Hypertension: -Adjust meds as needed -Monitor Hematuria: -Follows with Dr. Mccauley in the past -Urology evaluated pt Uterine cancer: -S/p Hysterectomy and Chemo/radiation -Follows oncologist outpatiently -As per primary team Subjective Date of service: 08/12/18 Interval history: Pt seen in bed, awake, doesn't speak Romansh, no family at bedside Objective - Vital Signs Vital signs: Vital Signs - 12hr 08/12/18 08/12/18 08/12/18 02:00 02:01 07:19 Temperature 98.7 F 98.1 F Pulse Rate 80 65 Pulse Rate [ Apical] Respiratory 18 20 Rate Blood Pressure 117/66 108/52 O2 Sat by Pulse 100 97 Oximetry 08/12/18 08/12/18 07:57 08:54 Temperature Pulse Rate Pulse Rate [ 65 Apical] Respiratory 20 Rate Blood Pressure O2 Sat by Pulse 95 97 Oximetry - General Appearance General appearance: well-developed EENT: ATNC Neck: no JVD Respiratory: Present: Decreased Breath Sounds Cardiology: regular, S1S2 Gastrointestinal: normoactive bowel sounds, other (: Meza to gravity draining blood colored urine) Integumentary: warm and dry Neurologic: other (awake) Musculoskeletal: other (no edema to both lower extremities) - Lab 08/12/18 04:39 08/12/18 04:39 Most recent lab results Calcium 8.3 mg/dL (8.4-10.2) L 08/12/18 04:39 Phosphorus 6.30 mg/dL (2.5-4.5) H 08/12/18 04:39 Urine Creatinine 34.2 mg/dL (0.1-20.0) H 08/12/18 04:14 Urine Sodium 73 mmol/L 08/11/18 12:56 Urine Total Protein 23 mg/dL (5-11.8) H 08/12/18 04:14 Medications & Allergies - Medications Allergies/Adverse Reactions: Allergies No Known Allergies Allergy (Verified 05/04/18 15:11) Home Medications: Home Medications Medication Instructions Recorded Confirmed Last Taken Type Alendronate Sodium [Fosamax] 70 mg PO 1XW 04/11/18 08/11/18 05/14/18 History Cholecalciferol (Vitamin D3) 50,000 unit PO QWEEK 04/11/18 08/11/18 05/14/18 History [Vitamin D3] Ferrous Sulfate [Iron] 325 mg PO DAILY 04/11/18 08/11/18 05/14/18 History Losartan Potassium 25 mg PO DAILY 04/11/18 08/11/18 05/14/18 History Lovastatin [Altoprev] 40 mg PO HS 04/11/18 08/11/18 05/14/18 History Triamterene/Hydrochlorothiazid 37.5 mg PO DAILY 04/11/18 08/11/18 05/14/18 History [Triamterene-Hctz 37.5-25 mg Cp] Multivit-Min/FA/Lycopen/Lutein 1 each PO DAILY 05/04/18 08/11/18 05/14/18 History [Centrum Silver Tablet] Active Medications: Generic Name Dose Route Start Last Admin Trade Name Freq PRN Reason Stop Dose Admin Acetaminophen 650 mg 08/11/18 12:46 Tylenol PO Q4H PRN Pain MILD(1-3)/Fever >100.5/NOE Albuterol 2.5 mg 08/11/18 12:46 Proventil IH Q4HRT PRN Shortness Of Breath Sodium Bicarbonate 75 meq/ 1,075 mls @ 75 mls/hr 08/11/18 17:00 08/11/18 20:52 Sodium Chloride IV 75 mls/hr DIRECT CHRISTINE Administration Morphine Sulfate 2 mg 08/11/18 12:46 Morphine IV Q4H PRN Pain, Moderate (4-6) Ondansetron HCl 4 mg 08/11/18 12:46 Zofran IV Q8H PRN Nausea And Vomiting Sodium Chloride 10 ml 08/11/18 22:00 08/12/18 09:39 Sodium Chloride Flush Syringe 10 Ml IV 10 ml BID CHRISTINE Administration Sodium Chloride 10 ml 08/11/18 12:46 Sodium Chloride Flush Syringe 10 Ml IV PRN PRN LINE FLUSH
--- NOTE | 2018-08-12 11:15 | Progress Note ---
Assessment and Plan Assessment and plan: 73 YO Female with Uterine Cancer S/P Radiation Therapy, HTN, HLD presents to ED for evaluation. Pt is nonverbal and does not speak Turkish. Pt brother is at bedside and serves as pc installation engineer. Pt seen and evaluated at wound center today and was found to have dizziness, weakness. Pt was transported to [facility] for further care and evaluation. Pt seen and evaluated in ED and found to hate ARF and acidosis. Nephrology consulted in ED. Pt admitted to Medical Floor. No reports of fever, chills, CP, Palpitations, NVD, Trauma, Skin Rash, BRBPR, productive cough, or recent ill contacts. Acute kidney injury with possible presumed tubular necrosis Non anion gap metabolic acidosis Lactic acidosis NO SIRS OR SEPSIS HTN Anemia of CHRONIC DISEASE Uterine Cancer s/p Hysterectomy and Radiation therapy Plan Supportive care. Urology and Nephrology input noted Imaging with no evidence of hydroneprhosis Continue gentle hydration Recheck Lactate leve DVT/GI PROPHY History Interval history: Patient is seen today for: EDGAR Seen and examined at bedside; 24hour events reviewed; nursing staff ; no adverse overnight events reported to me; Denies any chest pain, nausea, vomiting, diarrhea. Patient is sitting up at bedside with no new complaints. Although language barrier exists patient denies any new medication. No fever noted blood pressure controlled Hospitalist Physical - Physical exam Narrative exam: VITAL SIGNS: Reviewed. GENERAL: The patient appeared well nourished and normally developed. Vital signs as documented. HEAD: No signs of head trauma. EYES: Pupils are equal. Extraocular motions intact. EARS: Hearing grossly intact. MOUTH: Oropharynx is normal. NECK: No adenopathy, no JVD. CHEST: Chest with clear breath sounds bilaterally. No wheezes, rales, or rho nchi. CARDIAC: Regular rate and rhythm. S1 and S2, without murmurs, gallops, or rub s. VASCULAR: No Edema. Peripheral pulses normal and equal in all extremities. ABDOMEN: Soft, without detectable tenderness. No sign of distention. No rebound or guarding, and no masses palpated. Bowel Sounds normal. MUSCULOSKELETAL: Good range of motion of all major joints. Extremities without clubbing, cyanosis or edema. NEUROLOGIC EXAM: Alert and oriented x 3. No focal sensory or strength deficits. Speech normal. Follows commands. PSYCHIATRIC: Mood normal. SKIN: No rash or lesions. - Constitutional Vitals: Temp Pulse Resp BP Pulse Ox 98.1 F 65 18 108/52 97 08/12/18 07:19 08/12/18 08:54 08/12/18 10:00 08/12/18 07:19 08/12/18 08:54 General appearance: Present: mild distress Results - Labs CBC & Chem 7: 08/12/18 04:39 08/12/18 04:39 Labs: Laboratory Last Values WBC 5.0 K/mm3 (4.5-11.0) 08/12/18 04:39 RBC 2.82 M/mm3 (3.65-5.03) L 08/12/18 04:39 Hgb 8.4 gm/dl (10.1-14.3) L 08/12/18 04:39 Hct 25.0 % (30.3-42.9) L 08/12/18 04:39 MCV 89 fl (79-97) 08/12/18 04:39 MCH 30 pg (28-32) 08/12/18 04:39 MCHC 34 % (30-34) 08/12/18 04:39 RDW 14.3 % (13.2-15.2) 08/12/18 04:39 Plt Count 191 K/mm3 (140-440) 08/12/18 04:39 Lymph % (Auto) 34.8 % (13.4-35.0) 08/12/18 04:39 [place] % (Auto) 8.3 % (0.0-7.3) H 08/12/18 04:39 Eos % (Auto) 3.6 % (0.0-4.3) 08/12/18 04:39 Baso % (Auto) 0.7 % (0.0-1.8) 08/12/18 04:39 Lymph # 1.8 K/mm3 (1.2-5.4) 08/12/18 04:39 [place] # 0.4 K/mm3 (0.0-0.8) 08/12/18 04:39 Eos # 0.2 K/mm3 (0.0-0.4) 08/12/18 04:39 Baso # 0.0 K/mm3 (0.0-0.1) 08/12/18 04:39 Seg Neutrophils % 52.6 % (40.0-70.0) 08/12/18 04:39 Seg Neutrophils # 2.6 K/mm3 (1.8-7.7) 08/12/18 04:39 PT 16.2 Sec. (12.2-14.9) H 08/11/18 09:27 INR 1.26 (0.87-1.13) H 08/11/18 09:27 APTT 34.9 Sec. (24.2-36.6) 08/11/18 09:27 Sodium 145 mmol/L (137-145) D 08/12/18 04:39 Potassium 3.9 mmol/L (3.6-5.0) 08/12/18 04:39 Chloride 109.5 mmol/L (98-107) H 08/12/18 04:39 Carbon Dioxide 21 mmol/L (22-30) L 08/12/18 04:39 Anion Gap 18 mmol/L 08/12/18 04:39 BUN 74 mg/dL (7-17) H 08/12/18 04:39 Creatinine 7.7 mg/dL (0.7-1.2) H 08/12/18 04:39 Estimated GFR 5 ml/min 08/12/18 04:39 BUN/Creatinine Ratio 10 % 08/12/18 04:39 Glucose 91 mg/dL (65-100) 08/12/18 04:39 Lactic Acid 2.90 mmol/L (0.7-2.0) H* 08/11/18 09:27 Calcium 8.3 mg/dL (8.4-10.2) L 08/12/18 04:39 Phosphorus 6.30 mg/dL (2.5-4.5) H 08/12/18 04:39 Total Bilirubin 0.20 mg/dL (0.1-1.2) 08/12/18 04:39 AST 12 units/L (5-40) 08/12/18 04:39 ALT 5 units/L (7-56) L 08/12/18 04:39 Alkaline Phosphatase 67 units/L (35-129) 08/12/18 04:39 Troponin T < 0.010 ng/mL (0.00-0.029) 08/11/18 14:57 Total Protein 6.9 g/dL (6.3-8.2) 08/12/18 04:39 Albumin 3.6 g/dL (3.9-5) L 08/12/18 04:39 Albumin/Globulin Ratio 1.1 % 08/12/18 04:39 TSH 1.350 mlU/mL (0.270-4.200) 08/11/18 09:27 Urine Creatinine 34.2 mg/dL (0.1-20.0) H 08/12/18 04:14 Protein/Creatinin Ratio 0.67 08/12/18 04:14 Urine Sodium 73 mmol/L 08/11/18 12:56 Urine Total Protein 23 mg/dL (5-11.8) H 08/12/18 04:14
[2018-08-12] MEDS: NACL 0.45% 1000 ML 1,000 ML with SODIUM BICARBONATE 75 MEQ IV SCH (17:02)
[2018-08-12 17:36] LABS: Hematocrit 24.9 % (30.3-42.9); Hemoglobin 8.5 gm/dl (10.1-14.3)
--- NOTE | 2018-08-12 22:14 | XRay Report ---
FINAL REPORT EXAM: XR CHEST 1V AP HISTORY: fever 100.5 TECHNIQUE: 2 views of the chest. PRIORS: None. FINDINGS: The cardiomediastinal silhouette appears normal. The lungs are clear. The bones and soft tissues are unremarkable. IMPRESSION: No evidence of acute cardiopulmonary disease
[2018-08-13] MEDS: SODIUM BICARBONATE 75 MEQ in NACL 0.45% 1000 ML 1,000 ML IV SCH ×2 (05:47→21:29)
[2018-08-13 07:36] LABS: RBC,Urine > 182.0 /HPF (0.0-6.0)
--- NOTE | 2018-08-13 08:26 | Progress Note ---
Assessment and Plan Assessment and plan: 73 YO Female with Uterine Cancer S/P Radiation Therapy, HTN, HLD presents to ED for evaluation. Pt is nonverbal and does not speak Gibralt[place]. Pt brother is at bedside and serves as attending ambulatory care. Pt seen and evaluated at wound center today and was found to have dizziness, weakness. Pt was transported to [facility] for further care and evaluation. Pt seen and evaluated in ED and found to hate ARF and acidosis. Nephrology consulted in ED. Pt admitted to Medical Floor. No reports of fever, chills, CP, Palpitations, NVD, Trauma, Skin Rash, BRBPR, productive cough, or recent ill contacts. Acute kidney injury with possible presumed tubular necrosis Non anion gap metabolic acidosis Gross hematuria- ?secondary to Uterine cancer hx. Lactic acidosis- Resolved NO SIRS OR SEPSIS HTN Acute blood loss Anemia super imposed on anemia of CHRONIC DISEASE Uterine Cancer s/p Hysterectomy and Radiation therapy Plan Supportive care. Give 1 UNIT PRBC Per urology cysto, bladder bx - no acute finding. pt had previous pelvic radiation. Suggest radiation cystitis - recommend HBOT I spoke with Dr. Atkinson in ER. I states re eval is needed. CTAP (08-11-18) NO ACUTE FINDINGS abd soft, healed surgical scar ADMITTED FOR WEAKNESS RADIATION CYSTITIS (NO ACUTE ISSUE) Await todays labs Urology and Nephrology input noted Imaging with no evidence of hydroneprhosis Monitor H/H Continue gentle hydration Discontinue Meza if H/H stable DVT/GI PROPHY History Interval history: Patient is seen today for: EDGAR Seen and examined at bedside; 24hour events reviewed; nursing staff ; no adverse overnight events reported to me; Denies any chest pain, nausea, vomiting, diarrhea. Patient is sitting up at bedside with no new complaints. Although language barrier exists patient denies any new medication. No fever noted blood pressure controlled still with gross hematuria Hospitalist Physical - Physical exam Narrative exam: VITAL SIGNS: Reviewed. GENERAL: The patient appeared well nourished and normally developed. Vital signs as documented. HEAD: No signs of head trauma. EYES: Pupils are equal. Extraocular motions intact. EARS: Hearing grossly intact. MOUTH: Oropharynx is normal. NECK: No adenopathy, no JVD. CHEST: Chest with clear breath sounds bilaterally. No wheezes, rales, or rhonchi. CARDIAC: Regular rate and rhythm. S1 and S2, without murmurs, gallops, or rubs. VASCULAR: No Edema. Peripheral pulses normal and equal in all extremities. ABDOMEN: Soft, without detectable tenderness. No sign of distention. No rebound or guarding, and no masses palpated. Bowel Sounds normal. MUSCULOSKELETAL: Good range of motion of all major joints. Extremities without clubbing, cyanosis or edema. NEUROLOGIC EXAM: Alert and oriented x 3. No focal sensory or strength deficits. Speech normal. Follows commands. PSYCHIATRIC: Mood normal. SKIN: No rash or lesions. - Constitutional Vitals: Temp Pulse Resp BP Pulse Ox 97.5 F L 67 16 111/70 96 08/13/18 07:36 08/13/18 07:36 08/13/18 07:36 08/13/18 07:36 08/13/18 07:36 General appearance: Present: mild distress Results - Labs CBC & Chem 7: 08/13/18 09:46 08/13/18 09:46 Labs: Laboratory Last Values WBC 5.0 K/mm3 (4.5-11.0) 08/12/18 04:39 RBC 2.82 M/mm3 (3.65-5.03) L 08/12/18 04:39 Hgb 8.5 gm/dl (10.1-14.3) L 08/12/18 17:26 Hct 24.9 % (30.3-42.9) L 08/12/18 17:26 MCV 89 fl (79-97) 08/12/18 04:39 MCH 30 pg (28-32) 08/12/18 04:39 MCHC 34 % (30-34) 08/12/18 04:39 RDW 14.3 % (13.2-15.2) 08/12/18 04:39 Plt Count 191 K/mm3 (140-440) 08/12/18 04:39 Lymph % (Auto) 34.8 % (13.4-35.0) 08/12/18 04:39 [place] % (Auto) 8.3 % (0.0-7.3) H 08/12/18 04:39 Eos % (Auto) 3.6 % (0.0-4.3) 08/12/18 04:39 Baso % (Auto) 0.7 % (0.0-1.8) 08/12/18 04:39 Lymph # 1.8 K/mm3 (1.2-5.4) 08/12/18 04:39 [place] # 0.4 K/mm3 (0.0-0.8) 08/12/18 04:39 Eos # 0.2 K/mm3 (0.0-0.4) 08/12/18 04:39 Baso # 0.0 K/mm3 (0.0-0.1) 08/12/18 04:39 Seg Neutrophils % 52.6 % (40.0-70.0) 08/12/18 04:39 Seg Neutrophils # 2.6 K/mm3 (1.8-7.7) 08/12/18 04:39 PT 16.2 Sec. (12.2-14.9) H 08/11/18 09:27 INR 1.26 (0.87-1.13) H 08/11/18 09:27 APTT 34.9 Sec. (24.2-36.6) 08/11/18 09:27 Sodium 145 mmol/L (137-145) D 08/12/18 04:39 Potassium 3.9 mmol/L (3.6-5.0) 08/12/18 04:39 Chloride 109.5 mmol/L (98-107) H 08/12/18 04:39 Carbon Dioxide 21 mmol/L (22-30) L 08/12/18 04:39 Anion Gap 18 mmol/L 08/12/18 04:39 BUN 74 mg/dL (7-17) H 08/12/18 04:39 Creatinine 7.7 mg/dL (0.7-1.2) H 08/12/18 04:39 Estimated GFR 5 ml/min 08/12/18 04:39 BUN/Creatinine Ratio 10 % 08/12/18 04:39 Glucose 91 mg/dL (65-100) 08/12/18 04:39 Lactic Acid 1.70 mmol/L (0.7-2.0) 08/12/18 11:41 Calcium 8.3 mg/dL (8.4-10.2) L 08/12/18 04:39 Phosphorus 6.30 mg/dL (2.5-4.5) H 08/12/18 04:39 Total Bilirubin 0.20 mg/dL (0.1-1.2) 08/12/18 04:39 AST 12 units/L (5-40) 08/12/18 04:39 ALT 5 units/L (7-56) L 08/12/18 04:39 Alkaline Phosphatase 67 units/L (35-129) 08/12/18 04:39 Troponin T < 0.010 ng/mL (0.00-0.029) 08/11/18 14:57 Total Protein 6.9 g/dL (6.3-8.2) 08/12/18 04:39 Albumin 3.6 g/dL (3.9-5) L 08/12/18 04:39 Albumin/Globulin Ratio 1.1 % 08/12/18 04:39 TSH 1.350 mlU/mL (0.270-4.200) 08/11/18 09:27 Urine WBC (Auto) [place] 08/13/18 00:00 Urine RBC (Auto) > 182.0 /HPF (0.0-6.0) 08/13/18 00:00 Urine Creatinine 34.2 mg/dL (0.1-20.0) H 08/12/18 04:14 Protein/Creatinin Ratio 0.67 08/12/18 04:14 Urine Sodium 73 mmol/L 08/11/18 12:56 Urine Total Protein 23 mg/dL (5-11.8) H 08/12/18 04:14
[2018-08-13] MEDS: SODIUM CHLORIDE FLUSH SYRINGE 10 ML IV SCH ×2 (09:39→21:30)
[2018-08-13 10:14] LABS: Hematocrit 20.4 % (30.3-42.9); Hemoglobin 6.9 gm/dl (10.1-14.3)
[2018-08-13 10:20] LABS: Calcium 8.5 mg/dL (8.4-10.2)
[2018-08-13] MEDS ORDERED: NACL 0.9% 500 ML 500 ML IV ONE ×2 (12:25→16:00)
--- NOTE | 2018-08-13 15:29 | Progress Note ---
Assessment and Plan Acute Renal Failure secondary to Prerenal etiology vs ATN: Non-Anion Gap Metabolic Acidosis: -Renal function reviewed, SCr level decreased to 6.5 today, yesterday's SCr level was 7.7 -No acute indication for initiation of PRODUCT FINISHER at this time -Renal US showed no hydronephrosis or nephrolithiasis, but did show increased renal echogenicity most consistent with underlying renal disease -On 0.45% NS with 75 mEq of Sodium Bicarbonate infusion at 75 ml/hr -Obtain daily weights -Monitor renal function closely -Meza Catheter: Yes -Intake= 1975 ml Output= 2600 ml ( Net= -625 ml) -Renal plan d/w Dr Pierre Essential Hypertension: -Adjust meds as needed -Monitor Gross Hematuria: -Follows with Dr. Mccauley in the past -Urology evaluated pt -Meza Catheter in place Uterine cancer: -S/p Hysterectomy and Chemo/radiation -Follows oncologist outpatiently -As per primary team Subjective Date of service: 08/13/18 Interval history: Pt seen in bed, awake, doesn't speak Lithuanian, no family at bedside Objective - Vital Signs Vital signs: Vital Signs - 12hr 08/13/18 08/13/18 07:36 10:00 Temperature 97.5 F L Pulse Rate 67 Pulse Rate [ 67 Apical] Respiratory 16 16 Rate Blood Pressure 111/70 O2 Sat by Pulse 96 96 Oximetry - General Appearance General appearance: well-developed EENT: ATNC Neck: no JVD Respiratory: Present: Decreased Breath Sounds Cardiology: regular, S1S2 Gastrointestinal: normoactive bowel sounds, other (: Meza to gravity draining dark bloody urine) Integumentary: warm and dry Neurologic: other (awake) Musculoskeletal: other (no edema to BLE) Psychiatric: cooperative - Lab 08/13/18 09:46 08/13/18 09:46 Most recent lab results Calcium 8.5 mg/dL (8.4-10.2) 08/13/18 09:46 Phosphorus 6.30 mg/dL (2.5-4.5) H 08/12/18 04:39 Urine Creatinine 34.2 mg/dL (0.1-20.0) H 08/12/18 04:14 Urine Sodium 73 mmol/L 08/11/18 12:56 Urine Total Protein 23 mg/dL (5-11.8) H 08/12/18 04:14 Medications & Allergies - Medications Allergies/Adverse Reactions: Allergies No Known Allergies Allergy (Verified 05/04/18 15:11) Home Medications: Home Medications Medication Instructions Recorded Confirmed Last Taken Type Alendronate Sodium [Fosamax] 70 mg PO 1XW 04/11/18 08/11/18 05/14/18 History Cholecalciferol (Vitamin D3) 50,000 unit PO QWEEK 04/11/18 08/11/18 05/14/18 History [Vitamin D3] Ferrous Sulfate [Iron] 325 mg PO DAILY 04/11/18 08/11/18 05/14/18 History Losartan Potassium 25 mg PO DAILY 04/11/18 08/11/18 05/14/18 History Lovastatin [Altoprev] 40 mg PO HS 04/11/18 08/11/18 05/14/18 History Triamterene/Hydrochlorothiazid 37.5 mg PO DAILY 04/11/18 08/11/18 05/14/18 History [Triamterene-Hctz 37.5-25 mg Cp] Multivit-Min/FA/Lycopen/Lutein 1 each PO DAILY 05/04/18 08/11/18 05/14/18 History [Centrum Silver Tablet] Active Medications: Generic Name Dose Route Start Last Admin Trade Name Freq PRN Reason Stop Dose Admin Acetaminophen 650 mg 08/11/18 12:46 08/12/18 21:41 Tylenol PO 650 mg Q4H PRN Administration Pain MILD(1-3)/Fever >100.5/NOE Albuterol 2.5 mg 08/11/18 12:46 Proventil IH Q4HRT PRN Shortness Of Breath Sodium Bicarbonate 75 meq/ 1,075 mls @ 75 mls/hr 08/13/18 04:00 08/13/18 05:47 Sodium Chloride IV 75 mls/hr DIRECT CHRISTINE Administration Morphine Sulfate 2 mg 08/11/18 12:46 Morphine IV Q4H PRN Pain, Moderate (4-6) Ondansetron HCl 4 mg 08/11/18 12:46 Zofran IV Q8H PRN Nausea And Vomiting Sodium Chloride 10 ml 08/11/18 22:00 08/13/18 09:39 Sodium Chloride Flush Syringe 10 Ml IV 10 ml BID CHRISTINE Administration Sodium Chloride 10 ml 08/11/18 12:46 Sodium Chloride Flush Syringe 10 Ml IV PRN PRN LINE FLUSH
[2018-08-14] MEDS: ZOFRAN IV PRN ×2 (00:48→14:46)
[2018-08-14] MEDS ORDERED: NACL 0.9% 500 ML 500 ML IV NR (08:12)
--- NOTE | 2018-08-14 08:12 | Progress Note ---
Assessment and Plan Assessment and plan: 73 YO Female with Uterine Cancer S/P Radiation Therapy, HTN, HLD presents to ED for evaluation. Pt is nonverbal and does not speak Pal[place]an. Pt brother is at bedside and serves as patient care representative. Pt seen and evaluated at [facility] where she is getting treatment for radiation cystsis, and was found to have dizziness, weakness. Pt was transported to [facility] for further care and evaluation. Pt seen and evaluated in ED and found to hate ARF and acidosis. Nephrology consulted in ED. Pt admitted to Medical Floor. No reports of fever, chills, CP, Palpitations, NVD, Trauma, Skin Rash, BRBPR, productive cough, or recent ill contacts. * On arrival Urology evaluated the patient and recommended continued HBOT, no acute issues where noted * Patient continued to have gross hematuria and is planned for cystoscopy today * Nephrology is following for EDGAR and no decision about HD has been made yet. * Patient was transfused 1 unit PRBC 08/13/18 and may need more. Acute kidney injury with possible presumed tubular necrosis Non anion gap metabolic acidosis Acute blood loss Anemia super imposed on anemia of CHRONIC DISEASE Gross hematuria- ?secondary to Uterine cancer hx. Lactic acidosis- Resolved NO SIRS OR SEPSIS HTN Uterine Cancer s/p Hysterectomy and Radiation therapy Plan Supportive care. NPO for Cystoscopy today S/P 1 UNIT PRBC Await todays labs Urology and Nephrology input noted Imaging with no evidence of hydroneprhosis Monitor H/H Continue gentle hydration Discontinue Meza if H/H stable DVT/GI PROPHY History Interval history: Patient is seen today for: EDGAR Seen and examined at bedside; 24hour events reviewed; nursing staff ; no adverse overnight events reported to me; Denies any chest pain, nausea, vomiting, diarrhea. Patient is sitting up at bedside with no new complaints. Although language barrier exists patient denies any new medication. No fever noted blood pressure controlled still with gross hematuria Hospitalist Physical - Physical exam Narrative exam: VITAL SIGNS: Reviewed. GENERAL: The patient appeared well nourished and normally developed. Vital signs as documented. HEAD: No signs of head trauma. EYES: Pupils are equal. Extraocular motions intact. EARS: Hearing grossly intact. MOUTH: Oropharynx is normal. NECK: No adenopathy, no JVD. CHEST: Chest with clear breath sounds bilaterally. No wheezes, rales, or rhonchi. CARDIAC: Regular rate and rhythm. S1 and S2, without murmurs, gallops, or rubs. VASCULAR: No Edema. Peripheral pulses normal and equal in all extremities. ABDOMEN: Soft, without detectable tenderness. No sign of distention. No rebound or guarding, and no masses palpated. Bowel Sounds normal. MUSCULOSKELETAL: Good range of motion of all major joints. Extremities without clubbing, cyanosis or edema. NEUROLOGIC EXAM: Alert and oriented x 3. No focal sensory or strength deficits. Speech normal. Follows commands. PSYCHIATRIC: Mood normal. SKIN: No rash or lesions. - Constitutional Vitals: Temp Pulse Resp BP Pulse Ox 98.6 F 64 18 112/61 98 08/14/18 07:22 08/14/18 07:22 08/14/18 07:22 08/14/18 07:22 08/14/18 07:22 General appearance: Present: mild distress Results - Labs CBC & Chem 7: 08/14/18 12:00 08/14/18 12:00 Labs: Laboratory Last Values WBC 5.0 K/mm3 (4.5-11.0) 08/12/18 04:39 RBC 2.82 M/mm3 (3.65-5.03) L 08/12/18 04:39 Hgb 6.9 gm/dl (10.1-14.3) L 08/13/18 09:46 Hct 20.4 % (30.3-42.9) L 08/13/18 09:46 MCV 89 fl (79-97) 08/12/18 04:39 MCH 30 pg (28-32) 08/12/18 04:39 MCHC 34 % (30-34) 08/12/18 04:39 RDW 14.3 % (13.2-15.2) 08/12/18 04:39 Plt Count 191 K/mm3 (140-440) 08/12/18 04:39 Lymph % (Auto) 34.8 % (13.4-35.0) 08/12/18 04:39 [place] % (Auto) 8.3 % (0.0-7.3) H 08/12/18 04:39 Eos % (Auto) 3.6 % (0.0-4.3) 08/12/18 04:39 Baso % (Auto) 0.7 % (0.0-1.8) 08/12/18 04:39 Lymph # 1.8 K/mm3 (1.2-5.4) 08/12/18 04:39 [place] # 0.4 K/mm3 (0.0-0.8) 08/12/18 04:39 Eos # 0.2 K/mm3 (0.0-0.4) 08/12/18 04:39 Baso # 0.0 K/mm3 (0.0-0.1) 08/12/18 04:39 Seg Neutrophils % 52.6 % (40.0-70.0) 08/12/18 04:39 Seg Neutrophils # 2.6 K/mm3 (1.8-7.7) 08/12/18 04:39 PT 16.2 Sec. (12.2-14.9) H 08/11/18 09:27 INR 1.26 (0.87-1.13) H 08/11/18 09:27 APTT 34.9 Sec. (24.2-36.6) 08/11/18 09:27 Sodium 141 mmol/L (137-145) 08/13/18 09:46 Potassium 3.4 mmol/L (3.6-5.0) L 08/13/18 09:46 Chloride 97.2 mmol/L (98-107) L 08/13/18 09:46 Carbon Dioxide 26 mmol/L (22-30) 08/13/18 09:46 Anion Gap 21 mmol/L 08/13/18 09:46 BUN 69 mg/dL (7-17) H 08/13/18 09:46 Creatinine 6.5 mg/dL (0.7-1.2) H 08/13/18 09:46 Estimated GFR 6 ml/min 08/13/18 09:46 BUN/Creatinine Ratio 11 % 08/13/18 09:46 Glucose 124 mg/dL (65-100) H 08/13/18 09:46 Lactic Acid 1.70 mmol/L (0.7-2.0) 08/12/18 11:41 Calcium 8.5 mg/dL (8.4-10.2) 08/13/18 09:46 Phosphorus 6.30 mg/dL (2.5-4.5) H 08/12/18 04:39 Total Bilirubin 0.20 mg/dL (0.1-1.2) 08/12/18 04:39 AST 12 units/L (5-40) 08/12/18 04:39 ALT 5 units/L (7-56) L 08/12/18 04:39 Alkaline Phosphatase 67 units/L (35-129) 08/12/18 04:39 Troponin T < 0.010 ng/mL (0.00-0.029) 08/11/18 14:57 Total Protein 6.9 g/dL (6.3-8.2) 08/12/18 04:39 Albumin 3.6 g/dL (3.9-5) L 08/12/18 04:39 Albumin/Globulin Ratio 1.1 % 08/12/18 04:39 TSH 1.350 mlU/mL (0.270-4.200) 08/11/18 09:27 Urine WBC (Auto) Gerontological Nurse Practitioner 08/13/18 00:00 Urine RBC (Auto) > 182.0 /HPF (0.0-6.0) 08/13/18 00:00 Urine Creatinine 34.2 mg/dL (0.1-20.0) H 08/12/18 04:14 Protein/Creatinin Ratio 0.67 08/12/18 04:14 Urine Sodium 73 mmol/L 08/11/18 12:56 Urine Total Protein 23 mg/dL (5-11.8) H 08/12/18 04:14 Blood Type B POSITIVE 08/13/18 13:52 Antibody Screen Negative 08/13/18 13:52 Crossmatch See Detail 08/13/18 13:52
[2018-08-14] MEDS: SODIUM CHLORIDE FLUSH SYRINGE 10 ML IV SCH (09:14)
--- NOTE | 2018-08-14 09:35 | Progress Note ---
Assessment and Plan needs cysto gross hweme informed consent dictated Subjective Date of service: 08/14/18 Principal diagnosis: gross heme Objective - Constitutional Vitals: Vital Signs - 12hr 08/13/18 08/14/18 08/14/18 22:00 01:54 07:22 Temperature 98.0 F 98.6 F Pulse Rate 67 64 Respiratory 20 16 18 Rate Respiratory 20 Rate [ Generalized] Blood Pressure 121/53 112/61 O2 Sat by Pulse 98 95 98 Oximetry General appearance: Present: no acute distress - Neck Neck: supple - Respiratory Respiratory effort: normal - Gastrointestinal General gastrointestinal: Present: soft, non-tender - Labs CBC & Chem 7: 08/13/18 09:46 08/13/18 09:46 Labs: Abnormal lab results 08/13/18 08/13/18 08/13/18 Range/Units 09:46 09:46 13:52 Hgb 6.9 L (10.1-14.3) gm/dl Hct 20.4 L (30.3-42.9) % Potassium 3.4 L (3.6-5.0) mmol/L Chloride 97.2 L (98-107) mmol/L BUN 69 H (7-17) mg/dL Creatinine 6.5 H (0.7-1.2) mg/dL Glucose 124 H (65-100) mg/dL Crossmatch See Detail Medications & Allergies - Medications Allergies/Adverse Reactions: Allergies No Known Allergies Allergy (Verified 05/04/18 15:11) Home Medications: Home Medications Medication Instructions Recorded Confirmed Last Taken Type Alendronate Sodium [Fosamax] 70 mg PO 1XW 04/11/18 08/11/18 05/14/18 History Cholecalciferol (Vitamin D3) 50,000 unit PO QWEEK 04/11/18 08/11/18 05/14/18 History [Vitamin D3] Ferrous Sulfate [Iron] 325 mg PO DAILY 04/11/18 08/11/18 05/14/18 History Losartan Potassium 25 mg PO DAILY 04/11/18 08/11/18 05/14/18 History Lovastatin [Altoprev] 40 mg PO HS 04/11/18 08/11/18 05/14/18 History Triamterene/Hydrochlorothiazid 37.5 mg PO DAILY 04/11/18 08/11/18 05/14/18 History [Triamterene-Hctz 37.5-25 mg Cp] Multivit-Min/FA/Lycopen/Lutein 1 each PO DAILY 05/04/18 08/11/18 05/14/18 History [Centrum Silver Tablet] Active Medications: Generic Name Dose Route Start Last Admin Trade Name Freq PRN Reason Stop Dose Admin Acetaminophen 650 mg 08/11/18 12:46 08/12/18 21:41 Tylenol PO 650 mg Q4H PRN Administration Pain MILD(1-3)/Fever >100.5/NOE Albuterol 2.5 mg 08/11/18 12:46 Proventil IH Q4HRT PRN Shortness Of Breath Sodium Bicarbonate 75 meq/ 1,075 mls @ 75 mls/hr 08/13/18 04:00 08/13/18 21:29 Sodium Chloride IV 75 mls/hr DIRECT CHRISTINE Administration Sodium Chloride 500 mls @ 0 mls/hr 08/14/18 08:12 Nacl 0.9% 500 Ml IV 08/14/18 16:00 ONCE NR As Directed Morphine Sulfate 2 mg 08/11/18 12:46 Morphine IV Q4H PRN Pain, Moderate (4-6) Ondansetron HCl 4 mg 08/11/18 12:46 08/14/18 00:48 Zofran IV 4 mg Q8H PRN Administration Nausea And Vomiting Sodium Chloride 10 ml 08/11/18 22:00 08/14/18 09:14 Sodium Chloride Flush Syringe 10 Ml IV 10 ml BID CHRISTINE Administration Sodium Chloride 10 ml 08/11/18 12:46 Sodium Chloride Flush Syringe 10 Ml IV PRN PRN LINE FLUSH
--- NOTE | 2018-08-14 09:41 | Progress Note ---
Assessment and Plan Acute Renal Failure secondary to Prerenal etiology vs ATN: Non-Anion Gap Metabolic Acidosis: -Cr is pending this AM -No acute indication for initiation of ASSOCIATE PROFESSOR OF SOCIOLOGY at this time -Renal US showed no hydronephrosis or nephrolithiasis, but did show increased renal echogenicity most consistent with underlying renal disease -On 0.45% NS with 75 mEq of Sodium Bicarbonate infusion at 75 ml/hr -Obtain daily weights -Monitor renal function closely -Meza Catheter: Yes Essential Hypertension: -Adjust meds as needed -Monitor Gross Hematuria: -Follows with Dr. Mccauley in the past -Urology evaluated pt -Meza Catheter in place Uterine cancer: -S/p Hysterectomy and Chemo/radiation -Follows oncologist outpatiently -As per primary team Subjective Date of service: 08/14/18 Principal diagnosis: gross heme Interval history: was in the OR this AM Objective - Vital Signs Vital signs: Vital Signs - 12hr 08/13/18 08/14/18 08/14/18 22:00 01:54 07:22 Temperature 98.0 F 98.6 F Pulse Rate 67 64 Respiratory 20 16 18 Rate Respiratory 20 Rate [ Generalized] Blood Pressure 121/53 112/61 O2 Sat by Pulse 98 95 98 Oximetry - Lab 08/13/18 09:46 08/13/18 09:46 Most recent lab results Calcium 8.5 mg/dL (8.4-10.2) 08/13/18 09:46 Phosphorus 6.30 mg/dL (2.5-4.5) H 08/12/18 04:39 Urine Creatinine 34.2 mg/dL (0.1-20.0) H 08/12/18 04:14 Urine Sodium 73 mmol/L 08/11/18 12:56 Urine Total Protein 23 mg/dL (5-11.8) H 08/12/18 04:14 Medications & Allergies - Medications Allergies/Adverse Reactions: Allergies No Known Allergies Allergy (Verified 05/04/18 15:11) Home Medications: Home Medications Medication Instructions Recorded Confirmed Last Taken Type Alendronate Sodium [Fosamax] 70 mg PO 1XW 04/11/18 08/11/18 05/14/18 History Cholecalciferol (Vitamin D3) 50,000 unit PO QWEEK 04/11/18 08/11/18 05/14/18 History [Vitamin D3] Ferrous Sulfate [Iron] 325 mg PO DAILY 04/11/18 08/11/18 05/14/18 History Losartan Potassium 25 mg PO DAILY 04/11/18 08/11/18 05/14/18 History Lovastatin [Altoprev] 40 mg PO HS 04/11/18 08/11/18 05/14/18 History Triamterene/Hydrochlorothiazid 37.5 mg PO DAILY 04/11/18 08/11/18 05/14/18 History [Triamterene-Hctz 37.5-25 mg Cp] Multivit-Min/FA/Lycopen/Lutein 1 each PO DAILY 05/04/18 08/11/18 05/14/18 History [Centrum Silver Tablet] Active Medications: Generic Name Dose Route Start Last Admin Trade Name Freq PRN Reason Stop Dose Admin Acetaminophen 650 mg 08/11/18 12:46 08/12/18 21:41 Tylenol PO 650 mg Q4H PRN Administration Pain MILD(1-3)/Fever >100.5/NOE Albuterol 2.5 mg 08/11/18 12:46 Proventil IH Q4HRT PRN Shortness Of Breath Sodium Bicarbonate 75 meq/ 1,075 mls @ 75 mls/hr 08/13/18 04:00 08/13/18 21:29 Sodium Chloride IV 75 mls/hr DIRECT CHRISTINE Administration Sodium Chloride 500 mls @ 0 mls/hr 08/14/18 08:12 Nacl 0.9% 500 Ml IV 08/14/18 16:00 ONCE NR As Directed Morphine Sulfate 2 mg 08/11/18 12:46 Morphine IV Q4H PRN Pain, Moderate (4-6) Ondansetron HCl 4 mg 08/11/18 12:46 08/14/18 00:48 Zofran IV 4 mg Q8H PRN Administration Nausea And Vomiting Sodium Chloride 10 ml 08/11/18 22:00 08/14/18 09:14 Sodium Chloride Flush Syringe 10 Ml IV 10 ml BID CHRISTINE Administration Sodium Chloride 10 ml 08/11/18 12:46 Sodium Chloride Flush Syringe 10 Ml IV PRN PRN LINE FLUSH
[2018-08-14] MEDS ORDERED: NACL 0.9% 1000 ML 1,000 ML IV SCH (11:00)
--- NOTE | 2018-08-14 11:12 | Anesthesia Consultation ---
Anesthesia Consult and Med Hx Date of service: 08/14/18 - Airway Anesthetic Teeth Evaluation: Crowns ROM Head & Neck: Adequate Mental/Hyoid Distance: Adequate Mallampati Class: Class II Intubation Access Assessment: Good - Pulmonary Exam CTA: Yes - Cardiac Exam Cardiac Exam: No Murmur - Pre-Operative Health Status ASA Pre-Surgery Classification: ASA3 Proposed Anesthetic Plan: General - Pulmonary Hx Smoking: No Hx Asthma: No Hx Respiratory Symptoms: No SOB: No COPD: No Hx Pneumonia: No Hx Sleep Apnea: No (ARIANA PRE SCREEN HIGH RISK) - Cardiovascular System Hx Hypertension: Yes (X 3 YRS, patient states did not take any medications, to day) - Central Nervous System Hx Psychiatric Problems: No - Hematic Hx Anemia: Yes - Other Systems Hx Cancer: Yes (endometrial and ovarian,2014, Hysterectomy and chemo)
--- NOTE | 2018-08-14 11:12 | Anesthesia Day of Surgery ---
Anesthesia Day of Surgery - Day of Surgery Patient Examined: Yes Patient H&P Reviewed: Yes Patient is NPO: Yes
[2018-08-14] MEDS ORDERED: SUBLIMAZE ONE ×2 (11:46)
[2018-08-14] MEDS ORDERED: DIPRIVAN 10 MG/ML IV ONE (11:46)
[2018-08-14] MEDS ORDERED: WATER FOR IRRIG STERILE IR ONE (11:56)
[2018-08-14] MEDS ORDERED: OMNIPAQUE (300 MG) IR ONE (11:56)
[2018-08-14] MEDS ORDERED: ANCEF/STERILE WATER 2 GM/20 ML IV NR (12:00)
[2018-08-14] MEDS ORDERED: PEPCID IV NR (12:00)
[2018-08-14 12:26] LABS: Hematocrit 26.8 % (30.3-42.9); Hemoglobin 9.6 gm/dl (10.1-14.3); Mean Corpuscular HGB Conc 36 % (30-34); Mean Corpuscular Volume 85 fl (79-97); Platelet Count 217 K/mm3 (140-440); Red Blood Count 3.16 M/mm3 (3.65-5.03); Red Cell Distribution Width 13.1 % (13.2-15.2)
[2018-08-14 12:59] LABS: Calcium 8.7 mg/dL (8.4-10.2)
[2018-08-14] MEDS ORDERED: DILAUDID ONE (13:27)
[2018-08-14] MEDS ORDERED: DILAUDID IV PRN (13:46)
--- NOTE | 2018-08-14 13:59 | Post Operative Note ---
Date of procedure: 08/14/18 Pre-op diagnosis: hematuria Post-op diagnosis: same Findings: heme cystitis post xrt Procedure: cysto fulg biopsy rpg Anesthesia: GETA Surgeon: GWEN GONGORA Estimated blood loss: minimal Pathology: list (bladder) Specimen disposition: to lab Condition: stable Disposition: PACU
[2018-08-14] MEDS: SODIUM CHLORIDE FLUSH SYRINGE 10 ML IV PRN (14:46)
[2018-08-14] MEDS: NACL 0.9% IR SCH ×2 (19:50→23:29)
[2018-08-14] MEDS: ANCEF/NS 1 GM/50 ML 1 GM/50 ML BAG IV SCH ×2 (20:10→21:10)
[2018-08-14] MEDS: SODIUM BICARBONATE 75 MEQ in NACL 0.45% 1000 ML 1,000 ML IV SCH (21:49)
[2018-08-15] MEDS: ANCEF/NS 1 GM/50 ML 1 GM/50 ML BAG IV SCH ×2 (05:09→13:49)
[2018-08-15 05:11] LABS: Hematocrit 24.2 % (30.3-42.9); Hemoglobin 8.4 gm/dl (10.1-14.3); Mean Corpuscular HGB Conc 35 % (30-34); Mean Corpuscular Volume 86 fl (79-97); Red Blood Count 2.82 M/mm3 (3.65-5.03); Red Cell Distribution Width 13.4 % (13.2-15.2)
[2018-08-15] MEDS: NACL 0.9% IR SCH (05:13)
[2018-08-15 05:49] LABS: Platelet Count 212 K/mm3 (140-440)
[2018-08-15] MEDS: SODIUM CHLORIDE FLUSH SYRINGE 10 ML IV SCH ×3 (06:44→21:33)
[2018-08-15 07:30] LABS: Calcium 8.1 mg/dL (8.4-10.2)
--- NOTE | 2018-08-15 07:39 | Fluoroscopy Report ---
FLUOROSCOPY RETROGRADE UROGRAPHY: HISTORY: Bladder cancer. FINDINGS: Fluoroscopy was provided by radiology during retrograde urography by the urologist. 8 fluoroscopic images were captured. There is adequate filling of the ureters and intrarenal collecting systems with no filling defects or anatomic abnormalities identified. Please correlate with the procedural report if needed. IMPRESSION: Retrograde pyelograms within normal limits.
[2018-08-15] MEDS ORDERED: POTASSIUM CHLORIDE FEEDTUBE NR (09:00)
--- NOTE | 2018-08-15 09:25 | Progress Note ---
Assessment and Plan bauer drip low h and h may consider embolization consult dr abrams Subjective Date of service: 08/15/18 Principal diagnosis: gross heme Objective - Constitutional Vitals: Vital Signs - 12hr 08/15/18 08/15/18 01:22 07:13 Temperature 98.5 F 98.2 F Pulse Rate 75 72 Respiratory 20 20 Rate Blood Pressure 104/53 115/59 O2 Sat by Pulse 94 97 Oximetry General appearance: Present: no acute distress - Respiratory Respiratory effort: normal - Gastrointestinal General gastrointestinal: Present: soft, non-tender - Labs CBC & Chem 7: 08/15/18 04:51 08/15/18 06:50 Labs: Abnormal lab results 08/13/18 08/14/18 08/14/18 Range/Units 13:52 12:00 12:00 RBC 3.16 L (3.65-5.03) M/mm3 Hgb 9.6 L (10.1-14.3) gm/dl POC Hgb (12-17) Hct 26.8 L D (30.3-42.9) % POC Hct (38-51) MCHC 36 H (30-34) % RDW 13.1 L (13.2-15.2) % POC Potassium (3.5-4.9) Potassium (3.6-5.0) mmol/L POC BUN (8-26) mg/dl BUN 56 H (7-17) mg/dL Creatinine 4.7 H (0.7-1.2) mg/dL Glucose (65-100) mg/dL Calcium (8.4-10.2) mg/dL Crossmatch See Detail 08/14/18 08/15/18 08/15/18 Range/Units 12:13 04:51 04:51 RBC 2.82 L (3.65-5.03) M/mm3 Hgb 8.4 L (10.1-14.3) gm/dl POC Hgb 8.8 L (12-17) Hct 24.2 L (30.3-42.9) % POC Hct 26 L (38-51) MCHC 35 H (30-34) % RDW (13.2-15.2) % POC Potassium 3.3 L (3.5-4.9) Potassium 3.4 L (3.6-5.0) mmol/L POC BUN 54 H (8-26) mg/dl BUN 49 H (7-17) mg/dL Creatinine 4.4 H (0.7-1.2) mg/dL Glucose 120 H (65-100) mg/dL Calcium 8.0 L (8.4-10.2) mg/dL Crossmatch 08/15/18 Range/Units 06:50 RBC (3.65-5.03) M/mm3 Hgb (10.1-14.3) gm/dl POC Hgb (12-17) Hct (30.3-42.9) % POC Hct (38-51) MCHC (30-34) % RDW (13.2-15.2) % POC Potassium (3.5-4.9) Potassium 3.1 L (3.6-5.0) mmol/L POC BUN (8-26) mg/dl BUN 47 H (7-17) mg/dL Creatinine 4.0 H (0.7-1.2) mg/dL Glucose 112 H (65-100) mg/dL Calcium 8.1 L (8.4-10.2) mg/dL Crossmatch Medications & Allergies - Medications Allergies/Adverse Reactions: Allergies No Known Allergies Allergy (Verified 05/04/18 15:11) Home Medications: Home Medications Medication Instructions Recorded Confirmed Last Taken Type Alendronate Sodium [Fosamax] 70 mg PO 1XW 04/11/18 08/11/18 05/14/18 History Cholecalciferol (Vitamin D3) 50,000 unit PO QWEEK 04/11/18 08/11/18 05/14/18 History [Vitamin D3] Ferrous Sulfate [Iron] 325 mg PO DAILY 04/11/18 08/11/18 05/14/18 History Losartan Potassium 25 mg PO DAILY 04/11/18 08/11/18 05/14/18 History Lovastatin [Altoprev] 40 mg PO HS 04/11/18 08/11/18 05/14/18 History Triamterene/Hydrochlorothiazid 37.5 mg PO DAILY 04/11/18 08/11/18 05/14/18 History [Triamterene-Hctz 37.5-25 mg Cp] Multivit-Min/FA/Lycopen/Lutein 1 each PO DAILY 10/08/11/18 05/14/18 History [Centrum Silver Tablet] Active Medications: Generic Name Dose Route Start Last Admin Trade Name Jeff PRN Reason Stop Dose Admin Acetaminophen 650 mg 08/11/18 12:46 08/12/18 21:41 Tylenol PO 650 mg Q4H PRN Administration Pain MILD(1-3)/Fever >100.5/NOE Albuterol 2.5 mg 08/11/18 12:46 Proventil IH Q4HRT PRN Shortness Of Breath Sodium Bicarbonate 75 meq/ 1,075 mls @ 75 mls/hr 08/13/18 04:00 08/14/18 21 :49 Sodium Chloride IV 75 mls/hr DIRECT CHRISTINE Administration Sodium Chloride 1,000 mls @ 75 mls/hr 08/14/18 11:00 08/14/18 11:10 Nacl 0.9% 1000 Ml IV 75 mls/hr DIRECT CHRISTINE Administration Cefazolin Sodium 1 gm in 50 mls @ 100 mls/hr 08/14/18 20:00 08/15/18 05:39 Ancef/Ns 1 Gm/50 Ml IV 08/15/18 19:59 Infused Q8HR CHRISTINE Infusion Protocol Morphine Sulfate 2 mg 08/11/18 12:46 Morphine IV Q4H PRN Pain, Moderate (4-6) Ondansetron HCl 4 mg 08/11/18 12:46 08/14/18 14:46 Zofran IV 4 mg Q8H PRN Administration Nausea And Vomiting Potassium Chloride 40 meq 08/15/18 09:00 Potassium Chloride FEEDTUBE 08/15/18 11:00 ONCE NR Sodium Chloride 10 ml 08/11/18 22:00 08/15/18 06:44 Sodium Chloride Flush Syringe 10 Ml IV Not Given BID CHRISTINE Sodium Chloride 10 ml 08/11/18 12:46 08/14/18 14:46 Sodium Chloride Flush Syringe 10 Ml IV 10 ml PRN PRN Administration LINE FLUSH Sodium Chloride 2,000 ml 08/14/18 15:00 08/15/18 05:13 Nacl 0.9% IR 2,000 ml DIRECT CHRISTINE Administration
[2018-08-15] MEDS ORDERED: K-DUR PO ONE (10:36)
--- NOTE | 2018-08-15 10:52 | Progress Note ---
Assessment and Plan Acute Renal Failure secondary to Prerenal etiology vs ATN: Non-Anion Gap Metabolic Acidosis: -kidney function cont to improve -No acute indication for initiation of UNDERCUTTER at this time -bicarb gtt was stopped this AM -Obtain daily weights -Monitor renal function closely -Meza Catheter: Yes Essential Hypertension: -Adjust meds as needed -Monitor Gross Hematuria: -Follows with Dr. Mccauley in the past -Urology evaluated pt -Meza Catheter in place Uterine cancer: -S/p Hysterectomy and Chemo/radiation -Follows oncologist outpatiently -As per primary team Subjective Date of service: 08/15/18 Principal diagnosis: gross heme Interval history: tolerated surgery well, denies acute issues Objective - Vital Signs Vital signs: Vital Signs - 12hr 08/15/18 08/15/18 01:22 07:13 Temperature 98.5 F 98.2 F Pulse Rate 75 72 Respiratory 20 20 Rate Blood Pressure 104/53 115/59 O2 Sat by Pulse 94 97 Oximetry - General Appearance General appearance: well-developed, well-nourished EENT: ATNC, PERRL, mucous membranes moist Neck: no JVD, no carotid bruit Respiratory: Present: Clear to Ascultation. Absent: Rales, Ronchi Cardiology: regular, S1S2 Gastrointestinal: normoactive bowel sounds, no tenderness, no distended Integumentary: no rash, warm and dry Neurologic: no focal deficit, no asterixis, alert and oriented x3 Musculoskeletal: other (no edema in BLE) Psychiatric: mood/affect appropriate, cooperative - Lab 08/15/18 04:51 08/15/18 06:50 Most recent lab results Calcium 8.1 mg/dL (8.4-10.2) L 08/15/18 06:50 Phosphorus 6.30 mg/dL (2.5-4.5) H 08/12/18 04:39 Urine Creatinine 34.2 mg/dL (0.1-20.0) H 08/12/18 04:14 Urine Sodium 73 mmol/L 08/11/18 12:56 Urine Total Protein 23 mg/dL (5-11.8) H 08/12/18 04:14 Medications & Allergies - Medications Allergies/Adverse Reactions: Allergies No Known Allergies Allergy (Verified 05/04/18 15:11) Home Medications: Home Medications Medication Instructions Recorded Confirmed Last Taken Type Alendronate Sodium [Fosamax] 70 mg PO 1XW 04/11/18 08/11/18 05/14/18 History Cholecalciferol (Vitamin D3) 50,000 unit PO QWEEK 04/11/18 08/11/18 05/14/18 History [Vitamin D3] Ferrous Sulfate [Iron] 325 mg PO DAILY 04/11/18 08/11/18 05/14/18 History Losartan Potassium 25 mg PO DAILY 04/11/18 08/11/18 05/14/18 History Lovastatin [Altoprev] 40 mg PO HS 04/11/18 08/11/18 05/14/18 History Triamterene/Hydrochlorothiazid 37.5 mg PO DAILY 04/11/18 08/11/18 05/14/18 History [Triamterene-Hctz 37.5-25 mg Cp] Multivit-Min/FA/Lycopen/Lutein 1 each PO DAILY 05/04/18 08/11/18 05/14/18 History [Centrum Silver Tablet] Active Medications: Generic Name Dose Route Start Last Admin Trade Name Freq PRN Reason Stop Dose Admin Acetaminophen 650 mg 08/11/18 12:46 08/12/18 21:41 Tylenol PO 650 mg Q4H PRN Administration Pain MILD(1-3)/Fever >100.5/NOE Albuterol 2.5 mg 08/11/18 12:46 Proventil IH Q4HRT PRN Shortness Of Breath Sodium Chloride 1,000 mls @ 75 mls/hr 08/14/18 11:00 08/14/18 11:10 Nacl 0.9% 1000 Ml IV 75 mls/hr DIRECT CHRISTINE Administration Cefazolin Sodium 1 gm in 50 mls @ 100 mls/hr 08/14/18 20:00 08/15/18 05:39 Ancef/Ns 1 Gm/50 Ml IV 08/15/18 19:59 Infused Q8HR CHRISTINE Infusion Protocol Morphine Sulfate 2 mg 08/11/18 12:46 Morphine IV Q4H PRN Pain, Moderate (4-6) Ondansetron HCl 4 mg 08/11/18 12:46 08/14/18 14:46 Zofran IV 4 mg Q8H PRN Administration Nausea And Vomiting Potassium Chloride 40 meq 08/15/18 09:00 08/15/18 09:38 Potassium Chloride FEEDTUBE 08/15/18 11:00 40 meq ONCE NR Administration Sodium Chloride 10 ml 08/11/18 22:00 08/15/18 09:30 Sodium Chloride Flush Syringe 10 Ml IV 10 ml BID CHRISTINE Administration Sodium Chloride 10 ml 08/11/18 12:46 08/14/18 14:46 Sodium Chloride Flush Syringe 10 Ml IV 10 ml PRN PRN Administration LINE FLUSH Sodium Chloride 2,000 ml 08/14/18 15:00 08/15/18 05:13 Nacl 0.9% IR 2,000 ml DIRECT CHRISTINE Administration
--- NOTE | 2018-08-15 13:15 | Progress Note ---
Assessment and Plan Assessment and plan: 73 YO Female with Uterine Cancer S/P Radiation Therapy, HTN, HLD presents to ED for evaluation. Pt speak limited [place]. Pt seen and evaluated at [facility] where she was getting treatment for radiation cystsis, and was found to have dizziness, weakness. Pt was transported to [facility] for further care and evaluation. Pt seen and evaluated in ED and found to hate ARF and acidosis. Nephrology consulted in ED. Pt admitted to Medical Floor. No reports of fever, chills, CP, Palpitations, NVD, Trauma, Skin Rash, BRBPR, productive cough, or recent ill contacts. -Gross hematuria- ?secondary to Uterine cancer hx. Urology evaluated the patient and recommended continued HBOT; today he recommends IR for possible embolization - Cystoscopy was done - Nephrology is following for EDGAR and patient is not a candidate for HEAD TELLER - Acute blood loss Anemia super imposed on anemia of chronic disease; Patient was transfused 1 unit PRBC 08/13/18 and hemoglobin this morning is 8.4, will monitor H/H - Non anion gap metabolic acidosis improving; bicarbonate drip discontinued this morning by nephrology - Lactic acidosis- Resolved - Uterine Cancer s/p Hysterectomy and Radiation therapy DVT prophylaxis; SCDs because of hematuria History Interval history: Patient was seen and evaluated this morning, patient didn't have any new complaints, Meza is draining clear urine Hospitalist Physical - Physical exam Narrative exam: Not in cardiopulmonary distress. The patient appeared well nourished and normally developed. Vital signs as documented. Head exam is unremarkable. No scleral icterus . Neck is without jugular venous distension, thyromegaly, or carotid bruits. Lungs are clear to auscultation. Cardiac exam reveals regular rate and Rhythm. First and second heart sounds normal. No murmurs, rubs or gallops. Abdominal exam reveals normal bowel sounds, no masses, no organomegaly and no aortic enlargement. Meza in place, draining clean urine. Extremities are nonedematous. ASSET ANALYST: Alert and oriented. - Constitutional Vitals: Temp Pulse Resp BP Pulse Ox 98.2 F 72 20 115/59 97 08/15/18 07:13 08/15/18 07:13 08/15/18 10:00 08/15/18 07:13 08/15/18 10:00 General appearance: Present: no acute distress Results - Labs CBC & Chem 7: 08/15/18 04:51 08/15/18 06:50 Labs: Laboratory Last Values WBC 7.9 K/mm3 (4.5-11.0) 08/15/18 04:51 RBC 2.82 M/mm3 (3.65-5.03) L 08/15/18 04:51 Hgb 8.4 gm/dl (10.1-14.3) L 08/15/18 04:51 POC Hgb 8.8 (12-17) L 08/14/18 12:13 Hct 24.2 % (30.3-42.9) L 08/15/18 04:51 POC Hct 26 (38-51) L 08/14/18 12:13 MCV 86 fl (79-97) 08/15/18 04:51 MCH 30 pg (28-32) 08/15/18 04:51 MCHC 35 % (30-34) H 08/15/18 04:51 RDW 13.4 % (13.2-15.2) 08/15/18 04:51 Plt Count 212 K/mm3 (140-440) 08/15/18 04:51 Lymph % (Auto) 34.8 % (13.4-35.0) 08/12/18 04:39 Arroyo % (Auto) 8.3 % (0.0-7.3) H 08/12/18 04:39 Eos % (Auto) 3.6 % (0.0-4.3) 08/12/18 04:39 Baso % (Auto) 0.7 % (0.0-1.8) 08/12/18 04:39 Lymph # 1.8 K/mm3 (1.2-5.4) 08/12/18 04:39 Arroyo # 0.4 K/mm3 (0.0-0.8) 08/12/18 04:39 Eos # 0.2 K/mm3 (0.0-0.4) 08/12/18 04:39 Baso # 0.0 K/mm3 (0.0-0.1) 08/12/18 04:39 Seg Neutrophils % 52.6 % (40.0-70.0) 08/12/18 04:39 Seg Neutrophils # 2.6 K/mm3 (1.8-7.7) 08/12/18 04:39 PT 16.2 Sec. (12.2-14.9) H 08/11/18 09:27 INR 1.26 (0.87-1.13) H 08/11/18 09:27 APTT 34.9 Sec. (24.2-36.6) 08/11/18 09:27 POC Sodium 142 mmol/L (138-146) 08/14/18 12:13 POC Potassium 3.3 (3.5-4.9) L 08/14/18 12:13 POC Chloride 101 (98-109) 08/14/18 12:13 Sodium 143 mmol/L (137-145) 08/15/18 06:50 Potassium 3.1 mmol/L (3.6-5.0) L 08/15/18 06:50 Chloride 99.4 mmol/L (98-107) 08/15/18 06:50 Carbon Dioxide 28 mmol/L (22-30) 08/15/18 06:50 Anion Gap 19 mmol/L 08/15/18 06:50 POC BUN 54 mg/dl (8-26) H 08/14/18 12:13 BUN 47 mg/dL (7-17) H 08/15/18 06:50 Creatinine 4.0 mg/dL (0.7-1.2) H 08/15/18 06:50 Estimated GFR 11 ml/min 08/15/18 06:50 BUN/Creatinine Ratio 12 % 08/15/18 06:50 Glucose 112 mg/dL (65-100) H 08/15/18 06:50 POC Glucose 99 (70-105) 08/14/18 12:13 Lactic Acid 1.70 mmol/L (0.7-2.0) 08/12/18 11:41 Calcium 8.1 mg/dL (8.4-10.2) L 08/15/18 06:50 Phosphorus 6.30 mg/dL (2.5-4.5) H 08/12/18 04:39 Total Bilirubin 0.20 mg/dL (0.1-1.2) 08/12/18 04:39 AST 12 units/L (5-40) 08/12/18 04:39 ALT 5 units/L (7-56) L 08/12/18 04:39 Alkaline Phosphatase 67 units/L (35-129) 08/12/18 04:39 Troponin T < 0.010 ng/mL (0.00-0.029) 08/11/18 14:57 Total Protein 6.9 g/dL (6.3-8.2) 08/12/18 04:39 Albumin 3.6 g/dL (3.9-5) L 08/12/18 04:39 Albumin/Globulin Ratio 1.1 % 08/12/18 04:39 TSH 1.350 mlU/mL (0.270-4.200) 08/11/18 09:27 Urine WBC (Auto) Curer Acid Drum 08/13/18 00:00 Urine RBC (Auto) > 182.0 /HPF (0.0-6.0) 08/13/18 00:00 Urine Creatinine 34.2 mg/dL (0.1-20.0) H 08/12/18 04:14 Protein/Creatinin Ratio 0.67 08/12/18 04:14 Urine Sodium 73 mmol/L 08/11/18 12:56 Urine Total Protein 23 mg/dL (5-11.8) H 08/12/18 04:14 Blood Type B POSITIVE 08/13/18 13:52 Antibody Screen Negative 08/13/18 13:52 Crossmatch See Detail 08/13/18 13:52
[2018-08-15] MEDS: SODIUM CHLORIDE FLUSH SYRINGE 10 ML IV PRN (13:52)
[2018-08-16] MEDS: MORPHINE IV PRN ×2 (00:43→08:36)
[2018-08-16 07:25] LABS: Hematocrit 25.7 % (30.3-42.9); Hemoglobin 8.9 gm/dl (10.1-14.3)
[2018-08-16 07:51] LABS: Calcium 8.4 mg/dL (8.4-10.2)
[2018-08-16] MEDS: SODIUM CHLORIDE FLUSH SYRINGE 10 ML IV SCH (08:38)
--- NOTE | 2018-08-16 09:20 | Consultation ---
History of Present Illness - Reason for Consult Consult date: 08/16/18 radiation cystitis - History of Present Illness Patient with a history of uterine cancer status post radiation. She presented with gross hematuria. On examination today, the patient's urine is clear. She received 1 unit of blood and her hemoglobin is stable to rising. The patient complains of minimal weakness likely secondary to anemia. Past History Past Medical History: cancer, hypertension, hyperlipidemia, other (uterine cancer) Past Surgical History: Other (Bilateral ovary removal) Social history: single. denies: smoking, alcohol abuse, prescription drug abuse Family history: hypertension Medications and Allergies Allergies Allergy/AdvReac Type Severity Reaction Status Date / Time No Known Allergies Allergy Verified 05/04/18 15:11 Home Medications Medication Instructions Recorded Confirmed Last Taken Type Alendronate Sodium [Fosamax] 70 mg PO 1XW 04/11/18 08/11/18 05/14/18 History Cholecalciferol (Vitamin D3) 50,000 unit PO QWEEK 04/11/18 08/11/18 05/14/18 History [Vitamin D3] Ferrous Sulfate [Iron] 325 mg PO DAILY 04/11/18 08/11/18 05/14/18 History Losartan Potassium 25 mg PO DAILY 04/11/18 08/11/18 05/14/18 History Lovastatin [Altoprev] 40 mg PO HS 04/11/18 08/11/18 05/14/18 History Triamterene/Hydrochlorothiazid 37.5 mg PO DAILY 04/11/18 08/11/18 05/14/18 History [Triamterene-Hctz 37.5-25 mg Cp] Multivit-Min/FA/Lycopen/Lutein 1 each PO DAILY 05/04/18 08/11/18 05/14/18 History [Centrum Silver Tablet] Active Meds: Active Medications Acetaminophen (Tylenol) 650 mg PO Q4H PRN PRN Reason: Pain MILD(1-3)/Fever >100.5/NOE Last Admin: 08/12/18 21:41 Dose: 650 mg Documented by: Albuterol (Proventil) 2.5 mg IH Q4HRT PRN PRN Reason: Shortness Of Breath Sodium Chloride (Nacl 0.9% 1000 Ml) 1,000 mls @ 75 mls/hr IV DIRECT CHRISTINE Last Admin: 08/14/18 11:10 Dose: 75 mls/hr Documented by: Morphine Sulfate (Morphine) 2 mg IV Q4H PRN PRN Reason: Pain, Moderate (4-6) Last Admin: 08/16/18 08:36 Dose: 2 mg Documented by: Ondansetron HCl (Zofran) 4 mg IV Q8H PRN PRN Reason: Nausea And Vomiting Last Admin: 08/14/18 14:46 Dose: 4 mg Documented by: Sodium Chloride (Sodium Chloride Flush Syringe 10 Ml) 10 ml IV BID CHRISTINE Last Admin: 08/16/18 08:38 Dose: 10 ml Documented by: Sodium Chloride (Sodium Chloride Flush Syringe 10 Ml) 10 ml IV PRN PRN PRN Reason: LINE FLUSH Last Admin: 08/15/18 13:52 Dose: 10 ml Documented by: Sodium Chloride (Nacl 0.9%) 2,000 ml IR DIRECT CHRISTINE Last Admin: 08/15/18 05:13 Dose: 2,000 ml Documented by: Review of Systems All systems: negative Exam - Constitutional Vitals: Temp Pulse Resp BP Pulse Ox 98.7 F 74 18 115/61 96 08/16/18 08:33 08/16/18 08:33 08/16/18 08:36 08/16/18 08:33 08/16/18 08:33 General appearance: Present: no acute distress - EENT Eyes: Present: EOM intact ENT: hearing intact - Neck Neck: Present: supple, normal ROM - Respiratory Respiratory effort: normal - Extremities Extremities: no ischemia - Abdominal General gastrointestinal: Present: soft Female genitourinary: Present: deferred - Rectal Rectal Exam: deferred - Psychiatric Psychiatric: cooperative Results - Labs CBC & Chem 7: 08/16/18 07:11 08/16/18 07:01 Labs: Abnormal lab results 08/16/18 08/16/18 Range/Units 07:01 07:11 Hgb 8.9 L (10.1-14.3) gm/dl Hct 25.7 L (30.3-42.9) % Potassium 3.4 L (3.6-5.0) mmol/L BUN 40 H (7-17) mg/dL Creatinine 3.2 H (0.7-1.2) mg/dL - Imaging and Cardiology CT scan - pelvis: image reviewed Assessment and Plan Patient with radiation cystitis and hematuria which is now resolved. We will monitor the patient, if there is recurrent bleeding, the patient will be brought down for bilateral embolization of her cystic arteries.
[2018-08-16] MEDS ORDERED: K-DUR PO NR (09:29)
--- NOTE | 2018-08-16 10:48 | Discharge Summary ---
Providers - Providers Date of Admission: 08/11/18 12:46 Attending physician: PHUONG KENDALL MD 08/11/18 12:29 Consult to Physician [CONS] Routine Comment: DR RICKEY WILLARD W/ DR BAKER @1227 Consulting Provider: LARRY BAKER Physician Instructions: Reason For Exam: Acute renal failure 08/13/18 12:24 Consult to Physician [CONS] Routine Comment: Consulting Provider: KATALINA GROSS Physician Instructions: Reason For Exam: gross hematuria 08/14/18 08:08 Consult to Wound/ET Nurse [CONS] Routine Reason For Exam: wound eval 08/15/18 13:01 Consult to Physician [CONS] Routine Comment: spoke to SENIOR COMPUTER SPECIALIST/jessica Consulting Provider: JOANNA PURVIS Physician Instructions: Reason For Exam: hematuraia, urology recommend IR consult Primary care physician: DIRECTOR OF DIRECT MARKETING Hospitalization Reason for admission: Hematuria, renal failure Condition: Serious Pertinent studies: IMPRESSION: Retrograde pyelograms within normal limits. CT abdomen and pelvis IMPRESSION: No acute inflammatory process is identified. ] U/S IMPRESSION: Increased renal echogenicity most consistent with underlying medical renal disease Hospital course: 73 YO Female with Uterine Cancer S/P Radiation Therapy, HTN, HLD presents to ED for evaluation. Pt speak limited [place]ian. Pt seen and evaluated at [facility] where she was getting treatment for radiation cystsis, and was found to have dizziness, weakness. Pt was transported to [facility] for further care and evaluation. Pt seen and evaluated in ED and found to have ARF and acidosis. Nephrology consulted in ED. Pt admitted to Medical Floor. No reports of fever, chills, CP, Palpitations, NVD, Trauma, Skin Rash, BRBPR, productive cough, or recent ill contacts. -Gross hematuria- ?secondary to Uterine cancer hx. Urology evaluated did cystoscopy. Recommended to continue HBOT. IR was consulted for possible embolization and IR said no need to do equalization at this time, no active bleeding. Nephrology was evaluated the patient for EDGAR and patient is not a candidate for COMPUTER FORENSICS INVESTIGATOR. will follow the patient as an O/P Acute blood loss Anemia super imposed on anemia of chronic disease; Patient was transfused 1 unit PRBC 08/13/18 and hemoglobin was 8.4 and stable. Non anion gap metabolic acidosis; resolved with bicarbonate. Lactic acidosis- Resolved Uterine Cancer s/p Hysterectomy and Radiation therapy; will follow with her oncologist Patient was hemodynamically stable and cleared for discharge by urology. I have discussed the management plan with her brother who speaks [place]ian and agreed with the discharge plan. Disposition: [id number] HOME [facility] Time spent for discharge: 32 minutes - Discharge Diagnoses (1) ARF (acute renal failure) with tubular necrosis Status: Acute (2) Acidosis Status: Acute (3) Dizziness Status: Acute (4) HTN (hypertension) Status: Acute Qualifiers: Hypertension type: essential hypertension Qualified Code(s): I10 - Essential (primary) hypertension (5) History of uterine cancer Status: Acute (6) Lactic acidosis Status: Acute (7) Left leg weakness Status: Acute (8) Uterine cancer Status: Acute Qualifiers: Malignant neoplasm of body of uterus location: unspecified location Core Measure Documentation - Palliative Care Palliative Care/ Comfort Measures: Not Applicable - Core Measures Any of the following diagnoses?: none Exam - Physical Exam Narrative exam: Not in cardiopulmonary distress. The patient appeared well nourished and normally developed. Vital signs as documented. Head exam is unremarkable. No scleral icterus . Neck is without jugular venous distension, thyromegaly, or carotid bruits. Lungs are clear to auscultation. Cardiac exam reveals regular rate and Rhythm. First and second heart sounds normal. No murmurs, rubs or gallops. Abdominal exam reveals normal bowel sounds, no masses, no organomegaly and no aortic enlargement. Meza in place, draining clean urine. Extremities are nonedematous. SIDE GLUER: Alert and oriented. - Constitutional Vitals: Temp Pulse Resp BP Pulse Ox 98.7 F 74 18 115/61 96 08/16/18 08:33 08/16/18 08:33 08/16/18 08:36 08/16/18 08:33 08/16/18 08:33 Plan Activity: advance as tolerated Weight Bearing Status: Weight Bear as Tolerated Diet: renal Additional Instructions: F/u at [facility] in 1-2 weeks if no established PCP Follow up with: [facility] [Outside] - 7 Days SAMM HYMAN MD [Primary Care Provider] - 3-5 Days AD WELLS MD [Staff Physician] - 7 Days GWEN GONGORA MD [Staff Physician] - 7 Days
[2018-08-16 13:56] VITALS: BP 121/62
--- NOTE | 2018-08-16 14:40 | Progress Note ---
Assessment and Plan Acute Renal Failure secondary to Prerenal etiology vs ATN: Metabolic Acidosis: -Renal labs reviewed. 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 Hypokalemia: -In repletion with oral KCL Hypertension: -Blood pressures are stable -Monitor Hematuria: Radiation Cystitis: -Urologist-Dr. Mccauley onboard -Possible bilateral embolization of cystic arteries if have recurrent hematuria per Vascular Uterine cancer: -S/P Hysterectomy and Chemo/radiation -Follows oncologist outpatiently -As per primary team Subjective Date of service: 08/16/18 Principal diagnosis: gross heme Interval history: Patient seen lying in bed. Asking if she is going home today. Objective - Vital Signs Vital signs: Vital Signs - 12hr 08/16/18 08/16/18 08/16/18 08:33 08:36 13:15 Temperature 98.7 F 97.8 F Pulse Rate 74 72 Respiratory 18 18 18 Rate Blood Pressure 115/61 121/62 O2 Sat by Pulse 96 95 Oximetry - General Appearance General appearance: well-developed, appears stated age EENT: ATNC, PERRL, hearing intact, vision intact Neck: no JVD, supple Respiratory: Present: Decreased Breath Sounds Cardiology: regular, S1S2 Gastrointestinal: normoactive bowel sounds Integumentary: warm and dry Neurologic: alert and oriented x3 Musculoskeletal: other (No edema) Psychiatric: cooperative - Lab 08/16/18 07:11 08/16/18 07:01 Most recent lab results Calcium 8.4 mg/dL (8.4-10.2) 08/16/18 07:01 Phosphorus 6.30 mg/dL (2.5-4.5) H 08/12/18 04:39 Urine Creatinine 34.2 mg/dL (0.1-20.0) H 08/12/18 04:14 Urine Sodium 73 mmol/L 08/11/18 12:56 Urine Total Protein 23 mg/dL (5-11.8) H 08/12/18 04:14 Medications & Allergies - Medications Allergies/Adverse Reactions: Allergies No Known Allergies Allergy (Verified 05/04/18 15:11) Home Medications: Home Medications Medication Instructions Recorded Confirmed Last Taken Type Alendronate Sodium [Fosamax] 70 mg PO 1XW 04/11/18 08/11/18 05/14/18 History Cholecalciferol (Vitamin D3) 50,000 unit PO QWEEK 04/11/18 08/11/18 05/14/18 History [Vitamin D3] Ferrous Sulfate [Iron] 325 mg PO DAILY 04/11/18 08/11/18 05/14/18 History Multivit-Min/FA/Lycopen/Lutein 1 each PO DAILY 05/04/18 08/11/18 05/14/18 History [Centrum Silver Tablet] Active Medications: Generic Name Dose Route Start Last Admin Trade Name Freq PRN Reason Stop Dose Admin Acetaminophen 650 mg 08/11/18 12:46 08/12/18 21:41 Tylenol PO 650 mg Q4H PRN Administration Pain MILD(1-3)/Fever >100.5/NOE Albuterol 2.5 mg 08/11/18 12:46 Proventil IH Q4HRT PRN Shortness Of Breath Sodium Chloride 1,000 mls @ 75 mls/hr 08/14/18 11:00 08/14/18 11:10 Nacl 0.9% 1000 Ml IV 75 mls/hr DIRECT CHRISTINE Administration Morphine Sulfate 2 mg 08/11/18 12:46 08/16/18 08:36 Morphine IV 2 mg Q4H PRN Administration Pain, Moderate (4-6) Ondansetron HCl 4 mg 08/11/18 12:46 08/14/18 14:46 Zofran IV 4 mg Q8H PRN Administration Nausea And Vomiting Sodium Chloride 10 ml 08/11/18 22:00 08/16/18 08:38 Sodium Chloride Flush Syringe 10 Ml IV 10 ml BID CHRISTINE Administration Sodium Chloride 10 ml 08/11/18 12:46 08/15/18 13:52 Sodium Chloride Flush Syringe 10 Ml IV 10 ml PRN PRN Administration LINE FLUSH Sodium Chloride 2,000 ml 08/14/18 15:00 08/15/18 05:13 Nacl 0.9% IR 2,000 ml DIRECT CHRISTINE Administration
--- NOTE | 2018-11-17 08:22 | Operative Report ---
PREOPERATIVE DIAGNOSIS: Multiple left renal stones. POSTOPERATIVE DIAGNOSIS: Multiple left renal stones. PROCEDURE: Cystoscopy, retrograde ureteroscopy, laser of stones, stent. FINDINGS: This is a gentleman who had large amount of stone burden in the mid and upper ureter. He now presents for treatment. DESCRIPTION OF PROCEDURE: The patient was brought to the operating room and placed on the operating table. Following induction of anesthesia, placed in lithotomy position, prepped and draped in usual sterile fashion. Cystourethroscopy was performed. A wire was coiled in the kidney. Ureteroscopy showed the stones and were lasered. Multiple stones were lasered. A double J was placed. The patient tolerated the procedure well, no complications, brought to recovery in stable condition. JOB# [id number] BRYCE/AMELIA
== END 2018-08-16 15:00 | disposition home health service (06) | DRG 669 ==
LOC: ED 08:25 → 2B-ACE 12:46
PROVIDERS: ADMIT Internal Medicine; ATTEND Internal Medicine
PROC: 30233N1 Transfusion of Nonautologous Red Blood Cells into Peripheral Vein, Percutaneous Approach (ICD-10-PCS; 2018-08-13)
PROC: BT14ZZZ Fluoroscopy of Kidneys, Ureters and Bladder (ICD-10-PCS; principal; 2018-08-14)
PROC: 0T5B8ZZ Destruction of Bladder, Via Natural or Artificial Opening Endoscopic (ICD-10-PCS; 2018-08-14)
PROC: 0TCB8ZZ Extirpation of Matter from Bladder, Via Natural or Artificial Opening Endoscopic (ICD-10-PCS; 2018-08-14)
PROC: 0TBB8ZX Excision of Bladder, Via Natural or Artificial Opening Endoscopic, Diagnostic (ICD-10-PCS; 2018-08-14)
DX: N17.0 Acute kidney failure with tubular necrosis (principal); E87.2 Acidosis; R31.0 Gross hematuria; I10 Essential (primary) hypertension; C55 Malignant neoplasm of uterus, part unspecified; K21.9 Gastro-esophageal reflux disease without esophagitis; E78.00 Pure hypercholesterolemia, unspecified; D63.8 Anemia in other chronic diseases classified elsewhere; E78.5 Hyperlipidemia, unspecified; Z82.49 Family history of ischemic heart disease and other diseases of the circulatory system; Z90.710 Acquired absence of both cervix and uterus
CPT/HCPCS: 36415; 70450; 71045; 74176; 74420; 76770; 80048; 80053; 81015; 82140; 82570; 82803; 82962; 84100; 84156; 84300; 84443; 84484; 85014; 85018; 85025; 85027; 85610; 85730; 86850; 86900; 86901; 86920; 87040; 87086; 88305; 93005; 93010; 96361; 96365; G0378; A4217; C1758; C1769; J0690; J0696; J1170; J2270; J2405; J2704; J3010; J7030; J7040; P9016; Q9967

== ENCOUNTER 2018-09-04 07:51 | Outpatient (CLI) | payer MEDICARE | END 2018-09-04 07:52 | disposition home or self-care (01) | LOC: WOUND 07:51 | CPT/HCPCS: 99183; G0277 ==

== ENCOUNTER 2018-09-05 07:51 | Outpatient (CLI) | payer MEDICARE | END 2018-09-05 07:52 | disposition home or self-care (01) | LOC: WOUND 07:51 | CPT/HCPCS: 99183; G0277 ==

== ENCOUNTER 2018-09-06 07:52 | Outpatient (CLI) | payer MEDICARE | END 2018-09-06 07:53 | disposition home or self-care (01) | LOC: WOUND 07:52 | CPT/HCPCS: 99183; G0277 ==

== ENCOUNTER 2018-09-07 07:52 | Outpatient (CLI) | payer MEDICARE | END 2018-09-07 07:53 | disposition home or self-care (01) | LOC: WOUND 07:52 | CPT/HCPCS: 99183; G0277 ==

== ENCOUNTER 2018-09-08 07:52 | Outpatient (CLI) | payer MEDICARE | END 2018-09-08 07:53 | disposition home or self-care (01) | LOC: WOUND 07:52 | PROVIDERS: ATTEND Surgery | DX: N30.41 Irradiation cystitis with hematuria (principal); C54.8 Malignant neoplasm of overlapping sites of corpus uteri; L59.8 Other specified disorders of the skin and subcutaneous tissue related to radiation; Y84.2 Radiological procedure and radiotherapy as the cause of abnormal reaction of the patient, or of later complication, without mention of misadventure at the time of the procedure | CPT/HCPCS: 82962; G0277; 99183 ==

== ENCOUNTER 2018-09-11 08:04 | Outpatient (CLI) | payer MEDICARE | END 2018-09-11 08:05 | disposition home or self-care (01) | LOC: WOUND 08:04 | PROVIDERS: ATTEND Surgery | DX: N30.41 Irradiation cystitis with hematuria (principal); C54.8 Malignant neoplasm of overlapping sites of corpus uteri; L59.8 Other specified disorders of the skin and subcutaneous tissue related to radiation; Y84.2 Radiological procedure and radiotherapy as the cause of abnormal reaction of the patient, or of later complication, without mention of misadventure at the time of the procedure | CPT/HCPCS: 99183; G0277 ==

== ENCOUNTER 2018-09-12 07:55 | Outpatient (CLI) | payer MEDICARE | END 2018-09-12 07:56 | disposition home or self-care (01) | LOC: WOUND 07:55 | PROVIDERS: ATTEND Surgery | DX: N30.41 Irradiation cystitis with hematuria (principal); C54.8 Malignant neoplasm of overlapping sites of corpus uteri; L59.8 Other specified disorders of the skin and subcutaneous tissue related to radiation; Y84.2 Radiological procedure and radiotherapy as the cause of abnormal reaction of the patient, or of later complication, without mention of misadventure at the time of the procedure | CPT/HCPCS: 99183; G0277 ==

== ENCOUNTER 2018-09-13 07:55 | Outpatient (CLI) | payer MEDICARE | END 2018-09-13 07:56 | disposition home or self-care (01) | LOC: WOUND 07:55 | PROVIDERS: ATTEND Surgery | DX: N30.41 Irradiation cystitis with hematuria (principal); C54.8 Malignant neoplasm of overlapping sites of corpus uteri; L59.8 Other specified disorders of the skin and subcutaneous tissue related to radiation; Y84.2 Radiological procedure and radiotherapy as the cause of abnormal reaction of the patient, or of later complication, without mention of misadventure at the time of the procedure | CPT/HCPCS: 99183; G0277 ==

== ENCOUNTER 2018-09-14 07:50 | Outpatient (CLI) | payer MEDICARE | END 2018-09-14 07:51 | disposition home or self-care (01) | LOC: WOUND 07:50 | PROVIDERS: ATTEND Surgery | DX: N30.41 Irradiation cystitis with hematuria (principal); C54.8 Malignant neoplasm of overlapping sites of corpus uteri; L59.8 Other specified disorders of the skin and subcutaneous tissue related to radiation; Y84.2 Radiological procedure and radiotherapy as the cause of abnormal reaction of the patient, or of later complication, without mention of misadventure at the time of the procedure | CPT/HCPCS: 99183; G0277 ==

== ENCOUNTER 2018-09-15 07:55 | Outpatient (CLI) | payer MEDICARE | END 2018-09-15 07:56 | disposition home or self-care (01) | LOC: WOUND 07:55 | PROVIDERS: ATTEND Surgery | DX: N30.41 Irradiation cystitis with hematuria (principal); C54.8 Malignant neoplasm of overlapping sites of corpus uteri; L59.8 Other specified disorders of the skin and subcutaneous tissue related to radiation; Y84.2 Radiological procedure and radiotherapy as the cause of abnormal reaction of the patient, or of later complication, without mention of misadventure at the time of the procedure | CPT/HCPCS: 99183; G0277 ==

== ENCOUNTER 2018-09-18 07:55 | Outpatient (CLI) | payer MEDICARE | END 2018-09-18 07:56 | disposition home or self-care (01) | LOC: WOUND 07:55 | PROVIDERS: ATTEND Surgery | DX: N30.41 Irradiation cystitis with hematuria (principal); C54.8 Malignant neoplasm of overlapping sites of corpus uteri; L59.8 Other specified disorders of the skin and subcutaneous tissue related to radiation; Y84.2 Radiological procedure and radiotherapy as the cause of abnormal reaction of the patient, or of later complication, without mention of misadventure at the time of the procedure | CPT/HCPCS: 99183; G0277 ==

== ENCOUNTER 2018-09-19 07:55 | Outpatient (CLI) | payer MEDICARE | END 2018-09-19 07:56 | disposition home or self-care (01) | LOC: WOUND 07:55 | PROVIDERS: ATTEND Surgery | DX: N30.41 Irradiation cystitis with hematuria (principal); C54.8 Malignant neoplasm of overlapping sites of corpus uteri; L59.8 Other specified disorders of the skin and subcutaneous tissue related to radiation; Y84.2 Radiological procedure and radiotherapy as the cause of abnormal reaction of the patient, or of later complication, without mention of misadventure at the time of the procedure | CPT/HCPCS: 82962; 99183; G0277 ==

== ENCOUNTER 2018-09-20 07:55 | Outpatient (CLI) | payer MEDICARE | END 2018-09-20 07:56 | disposition home or self-care (01) | LOC: WOUND 07:55 | PROVIDERS: ATTEND Surgery | DX: N30.41 Irradiation cystitis with hematuria (principal); C54.8 Malignant neoplasm of overlapping sites of corpus uteri; L59.8 Other specified disorders of the skin and subcutaneous tissue related to radiation; Y84.2 Radiological procedure and radiotherapy as the cause of abnormal reaction of the patient, or of later complication, without mention of misadventure at the time of the procedure | CPT/HCPCS: 99183; G0277 ==

== ENCOUNTER 2018-09-21 07:50 | Outpatient (CLI) | payer MEDICARE | END 2018-09-21 07:51 | disposition home or self-care (01) | LOC: WOUND 07:50 | PROVIDERS: ATTEND Surgery | DX: N30.41 Irradiation cystitis with hematuria (principal); C54.8 Malignant neoplasm of overlapping sites of corpus uteri; L59.8 Other specified disorders of the skin and subcutaneous tissue related to radiation; Y84.2 Radiological procedure and radiotherapy as the cause of abnormal reaction of the patient, or of later complication, without mention of misadventure at the time of the procedure | CPT/HCPCS: 99183; G0277 ==

== ENCOUNTER 2018-09-22 06:54 | Outpatient (CLI) | payer MEDICARE | END 2018-09-22 06:55 | disposition home or self-care (01) | LOC: WOUND 06:54 | PROVIDERS: ATTEND Internal Medicine | DX: N30.41 Irradiation cystitis with hematuria (principal); C54.8 Malignant neoplasm of overlapping sites of corpus uteri; L59.8 Other specified disorders of the skin and subcutaneous tissue related to radiation; Y84.2 Radiological procedure and radiotherapy as the cause of abnormal reaction of the patient, or of later complication, without mention of misadventure at the time of the procedure | CPT/HCPCS: 99183; G0277 ==

== ENCOUNTER 2018-09-25 07:52 | Outpatient (CLI) | payer MEDICARE | END 2018-09-25 07:53 | disposition home or self-care (01) | LOC: WOUND 07:52 | PROVIDERS: ATTEND Surgery | DX: N30.41 Irradiation cystitis with hematuria (principal); C54.8 Malignant neoplasm of overlapping sites of corpus uteri; L59.8 Other specified disorders of the skin and subcutaneous tissue related to radiation; Y84.2 Radiological procedure and radiotherapy as the cause of abnormal reaction of the patient, or of later complication, without mention of misadventure at the time of the procedure | CPT/HCPCS: 99183; G0277 ==

== ENCOUNTER 2018-09-26 07:53 | Outpatient (CLI) | payer MEDICARE | END 2018-09-26 07:54 | disposition home or self-care (01) | LOC: WOUND 07:53 | PROVIDERS: ATTEND Surgery | DX: N30.41 Irradiation cystitis with hematuria (principal); C54.8 Malignant neoplasm of overlapping sites of corpus uteri; L59.8 Other specified disorders of the skin and subcutaneous tissue related to radiation; Y84.2 Radiological procedure and radiotherapy as the cause of abnormal reaction of the patient, or of later complication, without mention of misadventure at the time of the procedure | CPT/HCPCS: 99183; G0277 ==

== ENCOUNTER 2018-09-27 07:51 | Outpatient (CLI) | payer MEDICARE | END 2018-09-27 07:52 | disposition home or self-care (01) | LOC: WOUND 07:51 | PROVIDERS: ATTEND Surgery | DX: N30.41 Irradiation cystitis with hematuria (principal); C54.8 Malignant neoplasm of overlapping sites of corpus uteri; L59.8 Other specified disorders of the skin and subcutaneous tissue related to radiation; Y84.2 Radiological procedure and radiotherapy as the cause of abnormal reaction of the patient, or of later complication, without mention of misadventure at the time of the procedure | CPT/HCPCS: 99183; G0277 ==

== ENCOUNTER 2018-09-28 07:52 | Outpatient (CLI) | payer MEDICARE | END 2018-09-28 07:53 | disposition home or self-care (01) | LOC: WOUND 07:52 | PROVIDERS: ATTEND Surgery | DX: N30.41 Irradiation cystitis with hematuria (principal); C54.8 Malignant neoplasm of overlapping sites of corpus uteri; L59.8 Other specified disorders of the skin and subcutaneous tissue related to radiation; Y84.2 Radiological procedure and radiotherapy as the cause of abnormal reaction of the patient, or of later complication, without mention of misadventure at the time of the procedure | CPT/HCPCS: 99183; G0277 ==

== ENCOUNTER 2018-09-29 07:50 | Outpatient (CLI) | payer MEDICARE | END 2018-09-29 07:51 | disposition home or self-care (01) | LOC: WOUND 07:50 | PROVIDERS: ATTEND Surgery | DX: N30.41 Irradiation cystitis with hematuria (principal); C54.8 Malignant neoplasm of overlapping sites of corpus uteri; L59.8 Other specified disorders of the skin and subcutaneous tissue related to radiation; Y84.2 Radiological procedure and radiotherapy as the cause of abnormal reaction of the patient, or of later complication, without mention of misadventure at the time of the procedure | CPT/HCPCS: 99183; G0277 ==

== ENCOUNTER 2018-10-02 07:50 | Outpatient (CLI) | payer MEDICARE | END 2018-10-02 07:51 | disposition home or self-care (01) | LOC: WOUND 07:50 | PROVIDERS: ATTEND Surgery | DX: N30.41 Irradiation cystitis with hematuria (principal); C54.8 Malignant neoplasm of overlapping sites of corpus uteri; L59.8 Other specified disorders of the skin and subcutaneous tissue related to radiation; Y84.2 Radiological procedure and radiotherapy as the cause of abnormal reaction of the patient, or of later complication, without mention of misadventure at the time of the procedure | CPT/HCPCS: 99183; G0277 ==

== ENCOUNTER 2018-10-05 07:45 | Outpatient (CLI) | payer MEDICARE | END 2018-10-05 07:46 | disposition home or self-care (01) | LOC: WOUND 07:45 | PROVIDERS: ATTEND Surgery | DX: N30.41 Irradiation cystitis with hematuria (principal); C54.8 Malignant neoplasm of overlapping sites of corpus uteri; L59.8 Other specified disorders of the skin and subcutaneous tissue related to radiation; Y84.2 Radiological procedure and radiotherapy as the cause of abnormal reaction of the patient, or of later complication, without mention of misadventure at the time of the procedure | CPT/HCPCS: 99183; G0277 ==

== ENCOUNTER 2018-10-09 07:50 | Outpatient (CLI) | payer MEDICARE | END 2018-10-09 07:51 | disposition home or self-care (01) | LOC: WOUND 07:50 | PROVIDERS: ATTEND Surgery | DX: N30.41 Irradiation cystitis with hematuria (principal); C54.8 Malignant neoplasm of overlapping sites of corpus uteri; L59.8 Other specified disorders of the skin and subcutaneous tissue related to radiation; Y84.2 Radiological procedure and radiotherapy as the cause of abnormal reaction of the patient, or of later complication, without mention of misadventure at the time of the procedure | CPT/HCPCS: 99183; G0277 ==

== ENCOUNTER 2018-10-12 07:46 | Outpatient (CLI) | payer MEDICARE | END 2018-10-12 07:47 | disposition home or self-care (01) | LOC: WOUND 07:46 | PROVIDERS: ATTEND Surgery | DX: N30.41 Irradiation cystitis with hematuria (principal); C54.8 Malignant neoplasm of overlapping sites of corpus uteri; L59.8 Other specified disorders of the skin and subcutaneous tissue related to radiation; Y84.2 Radiological procedure and radiotherapy as the cause of abnormal reaction of the patient, or of later complication, without mention of misadventure at the time of the procedure | CPT/HCPCS: 99183; G0277 ==

== ENCOUNTER 2018-10-13 07:52 | Outpatient (CLI) | payer MEDICARE | END 2018-10-13 07:53 | disposition home or self-care (01) | LOC: WOUND 07:52 | PROVIDERS: ATTEND Surgery | DX: N30.41 Irradiation cystitis with hematuria (principal); C54.8 Malignant neoplasm of overlapping sites of corpus uteri; L59.8 Other specified disorders of the skin and subcutaneous tissue related to radiation; Y84.2 Radiological procedure and radiotherapy as the cause of abnormal reaction of the patient, or of later complication, without mention of misadventure at the time of the procedure | CPT/HCPCS: 99183; G0277 ==

== ENCOUNTER 2018-10-16 07:50 | Outpatient (CLI) | payer MEDICARE | END 2018-10-16 07:51 | disposition home or self-care (01) | LOC: WOUND 07:50 | PROVIDERS: ATTEND Surgery | DX: N30.41 Irradiation cystitis with hematuria (principal); C54.8 Malignant neoplasm of overlapping sites of corpus uteri; L59.8 Other specified disorders of the skin and subcutaneous tissue related to radiation; Y84.2 Radiological procedure and radiotherapy as the cause of abnormal reaction of the patient, or of later complication, without mention of misadventure at the time of the procedure | CPT/HCPCS: 99183; G0277 ==

== ENCOUNTER 2018-10-17 07:52 | Outpatient (CLI) | payer MEDICARE | END 2018-10-17 07:53 | disposition home or self-care (01) | LOC: WOUND 07:52 | PROVIDERS: ATTEND Surgery | DX: N30.41 Irradiation cystitis with hematuria (principal); C54.8 Malignant neoplasm of overlapping sites of corpus uteri; L59.8 Other specified disorders of the skin and subcutaneous tissue related to radiation; Y84.2 Radiological procedure and radiotherapy as the cause of abnormal reaction of the patient, or of later complication, without mention of misadventure at the time of the procedure | CPT/HCPCS: 99183; G0277 ==

== ENCOUNTER 2018-10-18 07:50 | Outpatient (CLI) | payer MEDICARE | END 2018-10-18 07:51 | disposition home or self-care (01) | LOC: WOUND 07:50 | PROVIDERS: ATTEND Surgery | DX: N30.41 Irradiation cystitis with hematuria (principal); C54.8 Malignant neoplasm of overlapping sites of corpus uteri; L59.8 Other specified disorders of the skin and subcutaneous tissue related to radiation; Y84.2 Radiological procedure and radiotherapy as the cause of abnormal reaction of the patient, or of later complication, without mention of misadventure at the time of the procedure | CPT/HCPCS: 99183; G0277 ==

== ENCOUNTER 2018-10-19 07:51 | Outpatient (CLI) | payer MEDICARE | END 2018-10-19 07:52 | disposition home or self-care (01) | LOC: WOUND 07:51 | PROVIDERS: ATTEND Internal Medicine | DX: N30.41 Irradiation cystitis with hematuria (principal); C54.8 Malignant neoplasm of overlapping sites of corpus uteri; L59.8 Other specified disorders of the skin and subcutaneous tissue related to radiation; Y84.2 Radiological procedure and radiotherapy as the cause of abnormal reaction of the patient, or of later complication, without mention of misadventure at the time of the procedure | CPT/HCPCS: 99183; G0277 ==

== ENCOUNTER 2018-10-20 07:49 | Outpatient (CLI) | payer MEDICARE | END 2018-10-20 07:50 | disposition home or self-care (01) | LOC: WOUND 07:49 | PROVIDERS: ATTEND Surgery | DX: N30.41 Irradiation cystitis with hematuria (principal); C54.8 Malignant neoplasm of overlapping sites of corpus uteri; L59.8 Other specified disorders of the skin and subcutaneous tissue related to radiation; Y84.2 Radiological procedure and radiotherapy as the cause of abnormal reaction of the patient, or of later complication, without mention of misadventure at the time of the procedure | CPT/HCPCS: 99183; G0277 ==

== ENCOUNTER 2018-10-23 07:51 | Outpatient (CLI) | payer MEDICARE | END 2018-10-23 07:52 | disposition home or self-care (01) | LOC: WOUND 07:51 | PROVIDERS: ATTEND Surgery | DX: N30.41 Irradiation cystitis with hematuria (principal); C54.8 Malignant neoplasm of overlapping sites of corpus uteri; L59.8 Other specified disorders of the skin and subcutaneous tissue related to radiation; Y84.2 Radiological procedure and radiotherapy as the cause of abnormal reaction of the patient, or of later complication, without mention of misadventure at the time of the procedure | CPT/HCPCS: 99183; G0277 ==

== ENCOUNTER 2018-10-24 07:50 | Outpatient (CLI) | payer MEDICARE | END 2018-10-24 07:51 | disposition home or self-care (01) | LOC: WOUND 07:50 | PROVIDERS: ATTEND Surgery | DX: N30.41 Irradiation cystitis with hematuria (principal); C54.8 Malignant neoplasm of overlapping sites of corpus uteri; L59.8 Other specified disorders of the skin and subcutaneous tissue related to radiation; Y84.2 Radiological procedure and radiotherapy as the cause of abnormal reaction of the patient, or of later complication, without mention of misadventure at the time of the procedure | CPT/HCPCS: 99183; G0277 ==

== ENCOUNTER 2018-10-25 07:51 | Outpatient (CLI) | payer MEDICARE | END 2018-10-25 07:52 | disposition home or self-care (01) | LOC: WOUND 07:51 | PROVIDERS: ATTEND Surgery | DX: N30.41 Irradiation cystitis with hematuria (principal); C54.8 Malignant neoplasm of overlapping sites of corpus uteri; L59.8 Other specified disorders of the skin and subcutaneous tissue related to radiation; Y84.2 Radiological procedure and radiotherapy as the cause of abnormal reaction of the patient, or of later complication, without mention of misadventure at the time of the procedure | CPT/HCPCS: 99183; G0277 ==

== ENCOUNTER 2018-10-26 07:51 | Outpatient (CLI) | payer MEDICARE | END 2018-10-26 07:52 | disposition home or self-care (01) | LOC: WOUND 07:51 | PROVIDERS: ATTEND Surgery | DX: N30.41 Irradiation cystitis with hematuria (principal); C54.8 Malignant neoplasm of overlapping sites of corpus uteri; L59.8 Other specified disorders of the skin and subcutaneous tissue related to radiation; Y84.2 Radiological procedure and radiotherapy as the cause of abnormal reaction of the patient, or of later complication, without mention of misadventure at the time of the procedure | CPT/HCPCS: 99183; G0277 ==